=== PATIENT | female | born 1955 | race Caucasian/White ===

== ENCOUNTER → 2019-10-05 08:55 | Outpatient (BNVA) | payer MEDICARE, MEDICAID, SELFPAY | PROVIDERS: Family Provider Family Medicine; PCP Family Medicine; Visit Provider Internal Medicine Rheumatology | DX: M05.79 Rheumatoid arthritis with rheumatoid factor of multiple sites without organ or systems involvement (principal); Z79.899 Other long term (current) drug therapy; M79.7 Fibromyalgia; F17.210 Nicotine dependence, cigarettes, uncomplicated | CPT/HCPCS: 99213 ==

== ENCOUNTER → 2019-10-11 11:31 | Outpatient (BNVA) | payer MEDICARE, MEDICAID, SELFPAY | PROVIDERS: Family Provider Family Medicine; PCP Family Medicine; Visit Provider Podiatrist Foot & Ankle Surgery | DX: M79.671 Pain in right foot (principal); M77.32 Calcaneal spur, left foot | CPT/HCPCS: 73620; 73630 ==

== ENCOUNTER 2019-10-20 15:38 | Outpatient (REF) | payer MEDICARE, MEDICAID, SELFPAY ==
[2019-10-20 16:16] LABS: Add Urine Microscopic? YES; Bilirubin Urine Neg (NEGATIVE); Blood Urine Trace (Negative); Glucose Urine UA Norm (Normal); Ketones Urine Negative (Negative); Leukocyte Esterase Urine Negative (Negative); Nitrate Urine Negative (Negative); Protein Urine Neg (Negative); Specific Gravity, Urine 1.015 (1.005-1.030); Urine Appearance Clear (CLEAR); Urine Color Yellow (Yellow); Urobilinogen Urine Norm (Negative); pH Urine 5 (5-7)
[2019-10-20 16:20] LABS: Hyaline Casts Urine 0-4; WBC Urine 0-4 /hpf (0-5)
== END 2019-10-20 15:39 | disposition home or self-care (01) ==
LOC: LAB 15:38
PROVIDERS: Family Provider Family Medicine; PCP Family Medicine; Visit Provider Specialist
DX: Z01.89 Encounter for other specified special examinations (principal)
CPT/HCPCS: 81001; 87641

== ENCOUNTER 2019-11-08 16:11 | Outpatient (CLI) | payer MEDICARE, MEDICAID, SELFPAY | END 2019-11-08 16:12 | disposition home or self-care (01) | LOC: SPT 16:12 | PROVIDERS: Family Provider Family Medicine; PCP Family Medicine; Visit Provider Podiatrist Foot & Ankle Surgery | DX: M76.72 Peroneal tendinitis, left leg (principal) | CPT/HCPCS: L4361 ==

== ENCOUNTER 2019-12-06 14:35 | Outpatient (CLI) | payer MEDICARE, MEDICAID, SELFPAY | END 2019-12-06 14:36 | disposition home or self-care (01) | LOC: SPT 14:35 | PROVIDERS: Family Provider Family Medicine; PCP Family Medicine; Visit Provider Podiatrist Foot & Ankle Surgery | DX: M76.72 Peroneal tendinitis, left leg (principal) | CPT/HCPCS: L1902 ==

== ENCOUNTER → 2020-02-02 14:04 | Outpatient (BNVA) | payer MEDICARE, MEDICAID, SELFPAY | PROVIDERS: Family Provider Family Medicine; PCP Family Medicine; Visit Provider Internal Medicine Rheumatology | DX: M05.79 Rheumatoid arthritis with rheumatoid factor of multiple sites without organ or systems involvement (principal); F17.210 Nicotine dependence, cigarettes, uncomplicated; Z79.899 Other long term (current) drug therapy; M79.7 Fibromyalgia; M48.02 Spinal stenosis, cervical region; M17.0 Bilateral primary osteoarthritis of knee | CPT/HCPCS: 99214 ==

== ENCOUNTER → 2020-02-07 10:16 | Outpatient (BNVA) | payer MEDICARE, MEDICAID, SELFPAY | PROVIDERS: Family Provider Family Medicine; PCP Family Medicine; Visit Provider Specialist | DX: M17.11 Unilateral primary osteoarthritis, right knee (principal) | CPT/HCPCS: 73560; 73565; 81000; 87081 ==

== ENCOUNTER 2020-02-09 08:55 | Outpatient (CLI) | payer MEDICARE, MEDICAID, SELFPAY ==
--- NOTE | 2020-02-09 09:19 | XR_ITS ---
WS: [id number] RIGHT FOOT: 3 VIEW(S) TECHNIQUE: AP, oblique and lateral. HISTORY: inflammatory arthritis COMPARISON: 12/02/2018 No acute fracture or dislocation. Normal tarsal/metatarsal alignment. No erosions at the metatarsal heads. Subchondral erosion distal phalanx first toe is symmetric to the LEFT foot. This is been present on prior studies. XR/XR foot RT min 3V* [id number] IMPRESSION: Small erosion distal phalanx first toe may be from gout or subchondral cyst.
--- NOTE | 2020-02-09 09:19 | MR_ITS ---
WS: [id number] MRI LEFT FOOT, non- CONTRAST. COMPARISON: 02/09/2020 radiographs Multiplanar, multisequence imaging is performed without contrast. History: Lateral ankle pain for 6 months. No injury. Marker is placed over the lateral ankle at the site of pain. Marker is adjacent to the posterior dist al fibula. The common peroneus tendon at this level is normal. Inferior to the fibular tip the peroneus tendon becomes indistinct with subtle haziness and mild thic kening. This is a short segment area of tendon wall thickening and increased signal. The peroneus ree vis tendon is smaller caliber than expected but there is no full-thickness tear. The peroneus longus tendon is normal caliber and course. There is not a lot of fluid within the tendon sheath. There is no effusion at the ankle joint. The distal Achilles tendon is normal. There is a small calca bárbara spur and a small amount of fluid at the aponeurosis attachment to the calcaneal spur. No marrow edema. No marrow edema within the peroneal tubercle. MR/MR foot LT wo con* [id number] IMPRESSION: 1. Small caliber and mild increased signal in the peroneus brevis tendon dista l to the fibular tip. Probably from a partial chronic tear with healing. Tendin opathy with possible subtle changes of stenosing tenosynovitis should be consid ered. No full-thickness tear. 2. No marrow edema in the peroneal tubercle. 3. Mild plantar fasciitis.
--- NOTE | 2020-02-09 09:19 | XR_ITS ---
WS: [id number] LEFT HAND: 3 VIEW(S) TECHNIQUE: PA, oblique and lateral. HISTORY: inflammatory arthritis COMPARISON: None available. No acute fracture or dislocation. Mild interphalangeal joint space narrowing. No periarticular osteopenia. No erosions. XR/XR hand LT min 3V* [id number] IMPRESSION: Minimal interphalangeal joint space narrowing from arthritis.
--- NOTE | 2020-02-09 09:19 | XR_ITS ---
WS: [id number] LEFT FOOT: 3 VIEW(S) TECHNIQUE: AP, oblique and lateral. HISTORY: inflammatory arthritis COMPARISON: 12/02/2018 No acute fracture or dislocation. Normal tarsal/metatarsal alignment. No erosions at the metatarsal heads. There is an erosion along th e medial first distal phalanx measuring 4 mm. This has been present on prior studies. May be a subcho ndral cyst from arthritis. No periarticular osteopenia. Small calcaneal spur. XR/XR foot LT min 3V* [id number] IMPRESSION: 1. No erosions at the metatarsal heads. 2. Small erosion involving the distal phalanx of the first toe may be from gou t or osteoarthritis. 3. Small calcaneal spur.
--- NOTE | 2020-02-09 09:19 | XR_ITS ---
WS: [id number] RIGHT HAND: 3 VIEW(S) TECHNIQUE: PA, oblique and lateral. HISTORY: inflammatory arthritis COMPARISON: None available. No acute fracture or dislocation. No erosions at the metacarpal heads. Mild interphalangeal joint space narrowing. No osteopenia. XR/XR hand RT min 3V* [id number] IMPRESSION: Mild osteoarthritis.
== END 2020-02-09 08:56 | disposition home or self-care (01) ==
LOC: RADWPI 09:01
PROVIDERS: Family Provider Family Medicine; PCP Family Medicine; Visit Provider Podiatrist Foot & Ankle Surgery
DX: M19.90 Unspecified osteoarthritis, unspecified site (principal); M19.041 Primary osteoarthritis, right hand; M19.042 Primary osteoarthritis, left hand; M77.32 Calcaneal spur, left foot; M85.872 Other specified disorders of bone density and structure, left ankle and foot; M85.871 Other specified disorders of bone density and structure, right ankle and foot; M72.2 Plantar fascial fibromatosis
CPT/HCPCS: 73130; 73630; 73718

== ENCOUNTER 2020-02-15 09:27 | Observation (INO) | payer MEDICARE, MEDICAID, SELFPAY ==
[2020-02-11 11:15] VITALS: BMI 27.8
--- NOTE | 2020-02-11 11:35 | ECG_ITS ---
Measurements Intervals Rough And Ready Rate: 51 P: 47 CA: 145 QRS: -16 QRSD: 114 T: -33 QT: 453 QTc: 419 SINUS BRADYCARDIA SEPTAL MYOCARDIAL INFARCTION [40+ ms Q WAVE IN V1/V2], PROBABLY OLD MODERATE T-WAVE ABNORMALITY, CONSIDER LATERAL ISCHEMIA Compared to ECG 04/03/2019 19:25:30 Myocardial infarct finding now present Sinus rhythm no longer present Intraventricular conduction delay no longer present T-wave abnormality still present Possible ischemia still present Electronically Signed On 02-11-2020 18:28:46 CDT by Lenore Brink M.D. [email or web address]
[2020-02-11 11:59] LABS: Basophils # 0.1 10^3/uL (0.0-0.1); Basophils % 0.8 %; Eosinophils # 0.1 10^3/uL (0.0-0.8); Eosinophils % 0.9 %; Hematocrit 36.1 % (37.0-47.0); Lymphocytes # 1.2 10^3/uL (0.8-4.8); Lymphocytes % 11.8 %; Mean Corpuscular HGB Conc 30.5 g/dL (30.0-36.0); Mean Corpuscular Hemoglobin 27.2 pg (28.0-34.0); Mean Corpuscular Volume 89.1 fL (81-99); Mean Platelet Volume 12.6 fL (7.4-10.4); Monocytes # 0.5 10^3/uL (0.2-0.9); Monocytes % 4.7 %; Neutrophils # 8.2 10^3/uL (1.8-7.7); Neutrophils % 81.4 %; Nucleated Red Blood Cells % 0 %; Platelet Count 208 10^3/cmm (130-400); Red Blood Count 4.05 10^6/uL (4.1-5.3); Red Cell Distribution Width 17.4 % (12.1-15.1)
--- NOTE | 2020-02-11 12:00 | P.ANESASSM_ITS ---
Pre-Anesthetic Assessment Pre-Anesthetic Assessment: Height/Weight: Height 1.57 m Weight 68.946 kg Preop Diagnosis: Osteoarthritis right knee Proposed Procedure: Operation Date: 02/15/20 07:00 Proposed Procedures p Total Knee Arthroplasty 79771 M17.11(Right) - Kiki Trinidad MD Familial anesthetic complications: None Social: Social History: Tobacco and No alcohol Exam: Pre-Anes Outpt Exam: alert, oriented x 3, clear to auscultation bilaterally and regular rate & rhythm Airway: Cervical ROM: Other (limited extension - disc herniations) MP: 3 Additional comments: edentuous Pulmonary: Pulmonary: COPD CV/HEM: CV/HEM: CAD, HTN and [place] (2-3 (most recent one 2015)) GI: GI: GERD Metabolic: Metabolic: Hyperlipidemia and Thyroid Musc/skel: Musc/skel: RA (spinal Cord is being pinched -) Neuropsych: Neuropsych: CVA (no residual symptoms (2014)) and Neuropathy Anesthetic Plan: ASA status: 3 Anesthesia: General and Regional (specify below) Risk of > 500 ml blood loss (7ml/kg in children): No PFSH Anesthesia PFSH: Medical History CAD (coronary artery disease) COPD (chronic obstructive pulmonary disease) Degenerative cervical spinal stenosis Degenerative disc disease, lumbar Dyslipidemia Fibromyalgia Immunosuppression Medication monitoring encounter NJ, acute, non ST segment elevation Mitral regurgitation Osteoarthritis of left knee Seropositive rheumatoid arthritis of multiple joints Small fiber neuropathy Tobacco abuse Surgical History H/O adenoidectomy H/O bilateral cataract extraction H/O hemorrhoidectomy H/O: hysterectomy History of appendectomy Hx of section two times Hx of cholecystectomy Family History Other CAD (coronary artery disease) Cancer Chronic kidney disease (CKD) Hypertension Stroke Denies family history of Rheumatoid arthritis Diabetes Systemic lupus erythematosus (SLE) in adult Lung disease Social History Smoking and tobacco status: current every day smoker cigarettes Alcohol intake: never Marital status: Single Current occupational status: disabled History of recent travel: No (10/05/19) Data Anesthesia CBC & Chem 7: 02/11/20 11:25 Other Labs: Laboratory Results - last 48 hr 02/11/20 11:25 WBC 10.0 RBC 4.05 L Hgb 11.0 L Hct 36.1 L MCV 89.1 MCH 27.2 L MCHC 30.5 RDW 17.4 H Plt Count 208 MPV 12.6 H Neut % (Auto) 81.4 Lymph % (Auto) 11.8 [place] % (Auto) 4.7 Eos % (Auto) 0.9 Baso % (Auto) 0.8 Neut # (Auto) 8.2 H Lymph # (Auto) 1.2 [place] # (Auto) 0.5 Eos # (Auto) 0.1 Baso # (Auto) 0.1 Nucleated RBC % (auto) 0 Nucleated RBCs # 0.0 Cardiac Studies: No Data to Display
[2020-02-11 12:12] LABS: Alanine Aminotransferase 14 U/L (0-33); Albumin Level 4.3 g/dL (3.5-5.2); Alkaline Phosphatase 100 IU/L (35-105); Anion Gap 16.2 (5-19); Aspartate Amino Transferase 26 U/L (0-32); Blood Urea Nitrogen 12 mg/dL (8-23); Calcium 9.9 mg/dL (8.5-10.5); Carbon Dioxide 27 mmol/L (22-29); Chloride 104 mmol/L (98-107); Globulin 3.3 g/dL (1.3-4.6); Glomerular Filtration Rate 56.2 mL/min (90-130); Glucose 101 mg/dL (65-115); Osmolality Calculated 292 mOsm/kg (285-295); Potassium 4.2 mmol/L (3.5-5.1); Sodium 143 mmol/L (136-145); Total Bilirubin 0.3 mg/dL (0.15-1.2); Total Protein 7.6 g/dL (6.6-8.7)
[2020-02-15] VITALS (21 sets, daily range): BP systolic 101–163; BP diastolic 60–108; PULSE 53–97; RESP 13–26; TEMP 35.7–37; O2SAT 92–100
[2020-02-15] MEDS: CELEcoxib 200 mg Capsule 400 MG PO (05:57)
[2020-02-15] MEDS: sodium chloride 0.9% 1,000 ML 30 ML IV (05:58)
[2020-02-15] MEDS: midazolam 1 mg/mL INJ 2 mL 2 MG IVP (06:30)
[2020-02-15] MEDS: fentaNYL 50 mcg/mL INJ 2mL 100 MCG IVP (06:41)
--- NOTE | 2020-02-15 06:55 | P.HPUD_ITS ---
Surgery/Procedure H&P Update DATE OF PROCEDURE: February 15, 2020 DATE H&P PERFORMED: 02/07/20 H&P UPDATE INFORMATION: I have reviewed H&P completed within last 30 days, I have examined patient prior to procedure and H&P is in [facility] [place] [facility] on date indicated PREOP DIAGNOSIS: Osteoarthritis right knee PLANNED PROCEDURE: Operation Date: 02/15/20 07:00 Proposed Procedures p Total Knee Arthroplasty 71665 M17.11(Right) - Kiki Trinidad MD
--- NOTE | 2020-02-15 07:31 | ANES.PROC ---
Anesthesia Procedures Procedure/Date: 02/15/20 Nerve Block ^: Nerve Block 1: Main Anesthesia: general anesthesia Time Out Performed: Yes Consent: requested by attending/covering physician, from patient, risks and benefits reviewed and patient agrees to proceed Nerve block location: adductor canal (right) Anesthesia monitors applied: pulse oximetry, EKG, BP cuff and oxygen Nerve block position: supine Anesthetic Used: ropivicaine 0.5% Amount of anesthesia used (mL): 30 Ultrasound used to: recognize landmarks Nerve Stimulator Used?: No Interscalene/Femoral BLK: 4 stimuplex 21 g needle used for position and inplane approach, visualize local anesthetic spread and no vascular puncture identified Injection: neg aspiration of heme Patient Tolerated Procedure: well and no complications Complications: none
[2020-02-15] MEDS: ceFAZolin 1,000 mg SDV 1000 MG IRRIGATION ×2 (07:44)
[2020-02-15] MEDS: vancomycin 1,000 MG SDV 1000 MG XX (07:45)
--- NOTE | 2020-02-15 09:21 | XR_ITS ---
WS: [id number] RIGHT KNEE 2 VIEWS AP and cross table lateral imaging is submitted. HISTORY: Status post total knee arthroplasty. COMPARISON: 02/07/2020 Possible nondisplaced fracture through the proximal tibia. There is a lucency extending from the medi al tibial metaphysis inferiorly. On the lateral projection there is a slight interruption of the tom ex anteriorly over the tibial tubercle. Total knee replacement prosthetic devices are in good position and alignment. Normal position of the patella. Posterior patella resurfacing changes. Numerous postsurgical sutures are noted over the ant erior knee and there are normal postoperative changes in the soft tissues consistent with air, blood and edema. No complications are evident. XR/XR knee RT 1-2V [id number] IMPRESSION: 1. RIGHT knee arthroplasty. Components are in good position alignment. 2. Suspicious but indeterminate for fracture involving the proximal tibia.
--- NOTE | 2020-02-15 09:21 | SUR.PHASEI ---
0915 PATIENT TO PACU AT THIS TIME. RR EVEN AND UNLABORED. SPO2 100% ON SIMPLE MASK AT 8L. DRESSING TO RIGHT KNEE, CDI, WITH RIGHT PEDAL PULSE MARKED.
[2020-02-15] MEDS: fentaNYL 50 mcg/mL INJ 2mL IVP ×2 (09:31→09:48)
--- NOTE | 2020-02-15 09:41 | PM.OP ---
Operative Report Date of procedure: February 15, 2020 Pre-op Diagnosis: Osteoarthritis right knee Post-op diagnosis: same Procedure Done: Right total knee arthroplasty utilizing the following components: The [place] total knee system with a size 3 triathlon right posterior stabilized femur, a size 3 triathlon Tritanium tibial component with a triathlon X3 size 3 x 9 mm posterior stabilized tibial bearing insert. Plus an asymmetric patella size 29 mm x 9 mm Specimens removed/disposition: Bone, disposed of Pathology: none sent Surgeon: Kiki Trinidad Delicatessen Clerk: [facility] OR civilian technician Anesthesia: General (Intubated, ASA 3) Estimated blood loss (mL): 25 Tourniquet time (min): 80 Tourniquet time: at 250 mmHg IV fluids (mL): 1,100 Urine output (mL): 600 Complications: None Findings: Osteoarthritis right knee primarily medial compartment Condition: stable Disposition: PACU (Then to floor for postoperative rehabilitation and pain management) Brief History: This 64-year-old woman presented complaints of right knee pain secondary to degenerative osteoarthritis. She was not responsive to conservative measures. She had significant impact in her activities of daily living. She wished to proceed with total knee arthroplasty. Risks and complications were discussed with her and consents were signed preoperatively. Procedure: The patient was brought to the operating theater, and after undergoing adequate general intubated anesthesia with supplemental regional block, the right lower extremity was prepped with Dura-Prep and draped in usual fashion following placement of a tourniquet high on the leg. The leg was then draped free. Following prepping and draping, the leg was exsanguinated, and the tourniquet was elevated to 250 mmHg for a total tourniquet time of 80 minutes. Prior to elevation of the tourniquet, but following exposure of the site of surgery, a surgical pause was performed. At the time of the surgical pause, we confirmed the site and side of surgery. Additionally, we confirmed the appropriate and timely administration of preoperative antibiotics, Ancef 2 g and transexemic acid 1 g. The availability of equipment was confirmed, and the patient's identity was verbalized as well. Following the surgical pause, an incision was made centering over the patella continuing proximally and distally as necessary to allow access to the knee joint. Dissection continued through skin and soft tissues using a scalpel. Hemostasis was obtained using electrocautery. The skin incision was followed by a median parapatellar arthrotomy. The leg was extended and the patella was everted. Following this, the leg was returned to flexed position. The distal femur was exposed and a drill hole was made in this for placement of the distal femoral jig. The distal femoral jig was set at 5? of valgus. The distal femoral cutting block was then placed in appropriate position, and an prabhjot wing was used to confirm an appropriate amount of distal femur would be resected. The distal femoral resection was accomplished with 8 mm of bone being resected distally. After the distal femoral resection had been accomplished, the femur was measured and it measured a size 3. Medial lateral dimension also measured a size 3. A size 3 femoral cutting block was placed in position, and we were then able to accomplish the anterior, posterior and chamfer cuts. This jig was then removed and the notch guide was placed in position. With the notch guide in appropriate position, the notch was excised including resection of the anterior and posterior cruciate ligaments. This notch was to allow for the posterior stabilized femoral component. At this point, the femur was prepared and attention was directed to the proximal tibia. The posterior knee retractor was placed along with medial and lateral retractors. Further resection of the menisci was accomplished as we had better visualization. A complete meniscectomy was performed both medially and laterally with care being taken to protect the popliteus. Retractors were then placed so that the proximal tibia was well visualized. A drill hole was then made in the tibia for placement of the intramedullary guide. This guide was placed so that approximately 2 mm of bone would be resected from the deficient medial tibial plateau. The intramedullary guide was utilized supplemented with an extramedullary guide to assure appropriate alignment for the proximal tibial resection. The proximal tibial jig was then evaluated, pinned in position, and the proximal tibial resection was accomplished without difficulty. The jig was removed and the proximal tibia was measured. It measured a size 3. We then performed a trial reduction with a 9 mm insert into the size 3 tray. The femoral component was placed in position for the trial reduction, and the knee was placed through range of motion. There was excellent stability with excellent varus-valgus alignment with appropriate patellar tracking. This was felt to be the appropriate size insert. There was full extension and flexion without lift off and the rotation of the tibia was marked. Alignment was checked from the hip to the ankle, and this was noted to be appropriate as well. Attention was then directed to the patella. The patella was measured with a caliper. We resected sufficient patella to leave approximately 15 mm of patella remaining. Measurements of the patella then indicated that a size asymmetric 29 mm x 9 mm was the appropriate patellar size. We then placed the jig to drill for the 3 pegs of the press-fit patella, and these drill holes were made without incident. A trial patella was then placed and the knee was placed through range of motion. The patella was noted to track nicely without evidence of subluxation. The femur was prepared for a press-fit femur by drilling 2 holes for the femoral pegs. All trial components were subsequently removed. The tibial tray was then pinned into position, and we broached the tibia for the stem of the tibial component. Subsequently, 4 drill holes were made for placement of the press-fit tibia. This was accomplished without difficulty. Care was taken to assure appropriate rotation of the tibia as well as appropriate position on the proximal tibia. The tibial tray was completely seated on the proximal tibia. Following broaching, the tibial guide was removed, and all surfaces were copiously irrigated. The surfaces were then dried and a bone plug was placed into the distal femur. Exparel was also injected at this point. The Tritanium tibia was impacted into position. The beaded femur was then impacted into position in a cementless fashion. The tibial insert was placed. The patella was pressed into position with a patellar clamp. The knee was irrigated with 20 mL of Betadine and 500 mL of normal saline, and this was allowed to remain in the knee for 3-4 minutes. The knee was then copiously irrigated and suctioned dry. Attention was then directed to closure. Closure was accomplished with 0 Vicryl in the fascial tissues, 2-0 Monocryl was used in the subcutaneous tissues, and the skin was closed with skin emily followed by Exofin. A sterile dressing was then placed consisting of Telfa, 4 x 4's, ABDs, sterile soft roll, and an Mario wrap. The patient was returned the Recovery Room in a satisfactory condition. X-rays were obtained there. The patient will be discharged to the floor for postoperative rehabilitation and pain management. She'll be under observation status with plans to discharge home with home health.
--- NOTE | 2020-02-15 10:18 | SUR.PHASEI ---
1001 PATIENT TO MED SURG AT THIS TIME. PAIN 4/10, FIRST ICE IN PLACE TO RIGHT KNEE WITH DRESSING CDI. ANESTHESIA AWARE OF LAST DOSE OF FENTANYL. THIS NURSE REMAINED WITH PATIENT UNTIL 1003.
[2020-02-15] MEDS: HYDROcodone-acetaminophen 10-325 mg Tablet 1 TAB PO ×3 (11:17→22:08)
[2020-02-15] MEDS: CELEcoxib 200 mg Capsule PO ×2 (11:19→21:16)
[2020-02-15] MEDS: levothyroxine 25 mcg Tablet PO (11:19)
[2020-02-15] MEDS: pantoprazole DR 40 mg Tablet PO (11:19)
[2020-02-15] MEDS: sodium chloride 0.9% 1,000 ML 100 ML IV ×2 (11:24→21:15)
[2020-02-15] MEDS: chlorhexidine gluconate 0.12% Btl 473 mL 30 ML MUCOUS MEM ×3 (13:40→21:16)
[2020-02-15] MEDS: tizanidine 4 mg Tablet PO (13:58)
[2020-02-15] MEDS: pregabalin 100 mg Capsule PO ×2 (15:47→21:16)
[2020-02-15] MEDS: acetaminophen 500 mg Tablet PO (16:25)
[2020-02-15] MEDS: mupirocin oint 22 gm 1 APPLIC NASAL (17:08)
[2020-02-15] MEDS: sennosides-docusate Tablet 2 TAB PO (17:09)
[2020-02-15] MEDS: metoprolol tartrate 25 mg Tablet PO (17:09)
[2020-02-15] MEDS: iron polysaccharide complex 150 mg Capsule PO (17:09)
[2020-02-15] MEDS: calcium carbonate 500 mg Chew Tablet 1000 MG PO (17:09)
[2020-02-15] MEDS: triamcinolone 0.1% cream 15 gm 1 APPLIC TOPICAL (17:15)
[2020-02-15] MEDS: mirtazapine 30 mg Tablet PO (21:16)
[2020-02-15] MEDS: atorvastatin 40 mg Tablet 20 MG PO (21:16)
[2020-02-16 02:44] VITALS: RESP 18; O2SAT 92
[2020-02-16] MEDS: oxyCODONE-APAP 5-325 mg Tablet 1 TAB PO (02:44)
[2020-02-16 03:48] VITALS: BP 127/77; PULSE 61; RESP 18; TEMP 36.9; O2SAT 99
[2020-02-16] MEDS: tizanidine 4 mg Tablet PO (05:26)
[2020-02-16 05:58] LABS: Basophils % 0.1 %; Eosinophils % 0.1 %; Hematocrit 32.3 % (37.0-47.0); Hemoglobin 9.7 g/dL (11.5-15.3); Lymphocytes # 1.2 10^3/uL (0.8-4.8); Lymphocytes % 7.9 %; Mean Corpuscular Hemoglobin 27.6 pg (28.0-34.0); Mean Corpuscular Volume 91.8 fL (81-99); Monocytes % 6.9 %; Neutrophils # 12.8 10^3/uL (1.8-7.7); Neutrophils % 84.6 %; Nucleated Red Blood Cells % 0 %; Platelet Count 143 10^3/cmm (130-400); Red Blood Count 3.52 10^6/uL (4.1-5.3); Red Cell Distribution Width 17.6 % (12.1-15.1); White Blood Count 15.2 10^3/uL (4.0-10.0)
[2020-02-16 06:13] LABS: Anion Gap 15.8 (5-19); Blood Urea Nitrogen 10 mg/dL (8-23); Calcium 8.7 mg/dL (8.5-10.5); Carbon Dioxide 22 mmol/L (22-29); Chloride 106 mmol/L (98-107); Glomerular Filtration Rate 63.4 mL/min (90-130); Glucose 96 mg/dL (65-115); Osmolality Calculated 286 mOsm/kg (285-295); Potassium 3.8 mmol/L (3.5-5.1); Sodium 140 mmol/L (136-145)
[2020-02-16] MEDS: HYDROcodone-acetaminophen 10-325 mg Tablet 1 TAB PO (06:36)
[2020-02-16] MEDS: sodium chloride 0.9% 1,000 ML 100 ML IV (06:39)
[2020-02-16 07:21] VITALS: BP 103/61; PULSE 56; RESP 16; TEMP 37; O2SAT 98
[2020-02-16] MEDS: cholecalciferol (vitamin D3) 1,000 unit Tablet 1000 UNIT PO (09:36)
[2020-02-16] MEDS: predniSONE 5 mg Tablet 2.5 MG PO (09:37)
[2020-02-16] MEDS: aspirin 325 mg EC Tablet PO (09:37)
[2020-02-16] MEDS: calcium carbonate 500 mg Chew Tablet 1000 MG PO (09:37)
[2020-02-16] MEDS: metoprolol tartrate 25 mg Tablet PO (09:38)
[2020-02-16] MEDS: pantoprazole DR 40 mg Tablet PO (09:38)
[2020-02-16] MEDS: multivitamin therapeutic Tablet 1 TAB PO (09:38)
[2020-02-16] MEDS: sennosides-docusate Tablet 2 TAB PO (09:38)
[2020-02-16] MEDS: mupirocin oint 22 gm 1 APPLIC NASAL (09:39)
[2020-02-16] MEDS: iron polysaccharide complex 150 mg Capsule PO (09:39)
[2020-02-16] MEDS: pregabalin 100 mg Capsule PO ×2 (09:39→15:41)
[2020-02-16] MEDS: triamcinolone 0.1% cream 15 gm 1 APPLIC TOPICAL (09:39)
[2020-02-16] MEDS: levothyroxine 25 mcg Tablet PO (09:40)
[2020-02-16] MEDS: chlorhexidine gluconate 0.12% Btl 473 mL 30 ML MUCOUS MEM (09:41)
[2020-02-16] MEDS: CELEcoxib 200 mg Capsule PO (09:49)
--- NOTE | 2020-02-16 10:32 | PC.CHAP ---
Pastoral Care Encounter/Spiritual Assessment Type of Contact [] Declined tree sapper visit [] Patient/Family/Request visit [] Outpatient visit [] Follow-up visit [] Physician referral [] Code/Alert [x] Routine visit [] Staff referral [] Actively dying [] Patient sleeping [] Family support [] [] Out of room [] Palliative care [] [] Receiving care in room [] Pre-surgical visit [] Trauma [] Long length of stay [] ICU visit [] Other: Relational/Emotional Strength [] Patient feels connected with others/family/visitors/staff [] Distress [] Loneliness/isolation [] Abandonment Spirituality of Patient [] Person of Blanca [] Attends Evangelical of their Blanca [] Believes in Prayer [] Reads Bible or Hoahaoism materials [] There are Spiritual issues to be addressed Survey Research Professor Interventions [x] Prayer [] Active listening [] Non-anxious presence [] Spiritual/emotional support [] Crisis/trauma care [] Spiritual counseling [] Bereavement support [] Provided bereavement packet [] Provided Bible/devotional materials [] Provided toy/stuffed animal, coloring book to patient or family member [] Provided Communion [] Anointing/[place] [] Salvation [x] Completed spiritual assessment [] Other: Impact on Illness or Injury [] Angry [] Fearful [] Anxious [] Often cries [] Exhaustion [] Unable to work [] Unable to attend cheondoism [] Unable to walk/stand [] Unable to read [] Unable to drive [] Unable to eat/drink [] Unable to sleep [] Unable to be with family [] Patient intubated [] Other: Summary Patient working through pain. Patient lives alone but realizes that exercising is the only way to get better. Time spent with patient 15 min
[2020-02-16 11:03] VITALS: BP 116/69; PULSE 52; RESP 18; TEMP 36.5; O2SAT 99
--- NOTE | 2020-02-16 13:58 | P.DS_ITS ---
Discharge Providers Date of Admission: 02/15/20 09:27 Date of Discharge: February 16, 2020 Attending Provider at Admission: Kiki Trinidad MD Attending Provider at Discharge: Kiki Trinidad MD Primary Care Provider: Mora Adamson MD Diagnoses at Discharge Discharge Diagnosis (1) Primary osteoarthritis of right knee: Status: Resolved (2) History of total right knee replacement: Status: Acute Reason for Visit Reason for Visit: Reason For Visit: Knee Osteoarthritis Hospital Course Hospital Course: Patient was admitted to the hospital under observation status following same-day surgery for right total knee arthroplasty. Patient had an uneventful right total knee arthroplasty. On the first postoperative day, she was doing well. Her pain was controlled with oral pain medications. Once her dressing was removed, her wound was benign. There is no drainage. There is no significant ecchymosis. There is no evidence of DVT or other complication. The patient's x-rays were reviewed prior to discharge. There was some concern from the radiologist that there may be a small indeterminate fracture involving the medial tibia. I reviewed the x-ray, and I am not concerned that the patient would need to change weightbearing status at this time. The patient wished to be discharged to home with home physical therapy. This was arranged for her. There were no complications through her hospital stay. Discharge Summary: Patient came to the hospital for same-day surgery for the following procedure: Right total knee arthroplasty utilizing the following components: The Karyna total knee system with a size 3 triathlon right posterior stabilized femur, a size 3 triathlon Tritanium tibial component with a triathlon X3 size 3 x 9 mm posterior stabilized tibial bearing insert. Plus an asymmetric patella size 29 mm x 9 mm On the first postoperative day, the patient's pain was well controlled and managed. She was ready for discharge to home. Physical Exam Const: COMMON NORMALS: no acute distress, average body habitus, patient oriented x3 and alert GENERAL APPEARANCE: cooperative and comfortable ORIENTATION/CONSCIOUSNESS: Yes awake HENMT: COMMON NORMALS: normocephalic and atraumatic HEAD & SCALP: normocephalic and atraumatic Eye: GENERAL EYE: appearance normal, both eyes and all related structures Chest: COMMONS NORMALS: normal inspection of the chest Resp: COMMON NORMALS: normal respiratory effort EFFORT & INSPECTION: Yes able to speak in complete sentences and Yes symmetric chest movement Extremity: GENERAL: Yes normal exam except as noted RIGHT LOWER EXTREMITY: Yes knee joint Right knee: Yes inspection (Dressing is removed. There is no evidence of DVT. There is no drainage or evidence of infection.), Yes palpation (There is minimal to no tenderness with palpation) and Yes neurovascular exam (Intact distal to the surgical procedure) Neuro: COMMON NORMALS: patient oriented x3 SENSORIUM/ORIENTATION: Yes alert Psych: COMMON NORMALS: mental status grossly normal APPEARANCE: Yes grossly normal ATTITUDE: Yes calm and Yes engaged ATTENTION/CONCENTRATION: Yes attention grossly intact Skin: COMMON NORMALS: no rashes or lesions noted GENERAL SKIN EXAM: no rashes or lesions noted Urinary Catheter Management^: Latex Free: Cath Placed During This Visit: yes, but has since been removed by the nurse Urinary Catheter Date of Insertion: 02/15/20 Urinary Catheter Time of Insertion: 07:20 Date Urinary Catheter Removed: 02/16/20 Time Urinary Catheter Discontinued: 06:30 Discharge Data Data Completed and Pending: Completed Studies During Hospitalization Category Date Time Status XR knee RT 1-2V 7 3560 Routine Exams 02/15/20 09:21 Completed Pending at discharge Category Date Time Status Complete Blood Co unt w/Auto Lab 02/17/20 04:00 Uncollected Complete Blood Co unt w/Auto Lab 02/18/20 04:00 Uncollected Labs from last 24 hours 02/16/20 02/16/20 05:50 05:50 WBC 15.2 H RBC 3.52 L Hgb 9.7 L Hct 32.3 L MCV 91.8 MCH 27.6 L MCHC 30.0 RDW 17.6 H Plt Count 143 MPV 13.0 H Neut % (Auto) 84.6 Lymph % (Auto) 7.9 [place] % (Auto) 6.9 Eos % (Auto) 0.1 Baso % (Auto) 0.1 Neut # (Auto) 12.8 H Lymph # (Auto) 1.2 [place] # (Auto) 1.0 H Eos # (Auto) 0.0 Baso # (Auto) 0.0 Nucleated RBC % (a uto) 0 Nucleated RBCs # 0.0 Sodium 140 Potassium 3.8 Chloride 106 Carbon Dioxide 22 Anion Gap 15.8 BUN 10 Creatinine 0.9 GFR Calculation 63.4 L Glucose 96 Calculated Osmolal ity 286 Calcium 8.7 Procedures Performed: Right total knee arthroplasty utilizing the following components: The Karyna total knee system with a size 3 triathlon right posterior stabilized femur, a size 3 triathlon Tritanium tibial component with a triathlon X3 size 3 x 9 mm posterior stabilized tibial bearing insert. Plus an asymmetric patella size 29 mm x 9 mm Vitals: Last Vital Signs Temp 97.7 F 02/16/20 11:03 Pulse 52 L 02/16/20 11:03 Resp 18 02/16/20 11:03 BP 116/69 02/16/20 11:03 Pulse Ox 99 02/16/20 11:03 Discharge Plan Discharge Patient Disposition: Home Health Service Condition: Stable Prescriptions: New celecoxib 200 mg Capsule 200 mg PO Q12H Qty: 60 RF: 0 aspirin 325 mg Tablet,Delayed Release (Dr/Ec) 325 mg PO DAILY 30 Days RF: 0 Continued simvastatin 20 mg tablet 20 mg PO .daily at bedtime Qty: 90 RF: 3 nitroglycerin [Nitrostat] 0.4 mg tablet, sublingual 0.4 mg SUBLINGUAL Q5M PRN (Reason: chest pain) Qty: 25 RF: 4 metoprolol tartrate 25 mg tablet 25 mg PO BID RF: 0 furosemide 20 mg tablet 20 mg PO QAM RF: 0 potassium chloride 10 mEq tablet extended release 10 meq PO DAILY RF: 0 pregabalin [Lyrica] 100 mg capsule 100 mg PO TID RF: 0 sodium chloride 0.9 % solution for nebulization 1 ml INHALATION Q4H PRN (Reason: sob) RF: 0 mirtazapine 30 mg tablet 30 mg PO .daily at bedtime RF: 0 albuterol sulfate [ProAir HFA] 90 mcg/actuation HFA aerosol inhaler 2 puff INHALATION Q6H PRN (Reason: sob) RF: 0 tizanidine 4 mg capsule 4 mg PO TID PRN (Reason: Pain) RF: 0 movantix 25 mg tablet 1 tab PO DAILY RF: 0 alprazolam 0.25 mg tablet 0.25 mg PO .daily at bedtime PRN (Reason: Sleep) RF: 0 levothyroxine 25 mcg capsule 25 mcg PO .COMPLEX RF: 0 Restasis MultiDose 0.05 % drops 1 drop ophthalmic (eye) Q12H RF: 0 mupirocin 2 % ointment 1 applic TOPICAL BID RF: 0 triamcinolone acetonide 0.1 % cream 1 applic TOPICAL BID RF: 0 Movantik 25 mg tablet 25 mg PO QAM RF: 0 folic acid 1 mg tablet 1 mg PO DAILY Qty: 90 RF: 3 methotrexate sodium 2.5 mg tablet See Rx Instructions PO .COMPLEX Qty: 40 RF: 3 prednisone 2.5 mg tablet 2.5 mg PO DAILY Qty: 30 RF: 3 omeprazole 20 mg capsule,delayed release(DR/EC) 20 mg PO BID Qty: 60 RF: 3 Xeljanz XR 11 mg tablet extended release 24 hr 11 mg PO DAILY Qty: 30 RF: 1 hydrocodone-acetaminophen 10-325 mg tablet 1 tab PO Q6H PRN (Reason: Pain) Qty: 30 RF: 0 Held aspirin [Adult Aspirin Regimen] 81 mg tablet,delayed release (DR/EC) 81 mg PO DAILY RF: 0 Hold Instructions: Resume on 03/15/20. Resume this dose of aspirin after your 30 days of full strength aspirin for DVT prophylaxis Discharge Orders: Discharge Order (Routine); Ordered 02/15/20 Ordered By: Kiki Trinidad Other Ambulatory Orders: DME: Walker (Order) Location: None Selected Ordered By: Kiki Trinidad Referrals: [facility] [Outside] (Called [place] to inform them of discharge home.) Kiki Trinidad MD [Physician] - 03/03/20 1:00 pm (First visit is for a nurse visit for staple evaluation and removal. that is on March 03 at 1:00pm. Also, please follow-up with me on March 08, Friday, at 1:45 PM.) Discharge Diet: Advance as tolerated Discharge Activity: Increase activity as tolerated and Use walker/crutches as instructed Patient Instructions: Aspirin (By mouth), Celecoxib (By mouth), Total Knee Replacement (DC) Activity Restrictions/Additional Instructions: Ice and elevation to right lower extremity. Range of motion per physical therapy. Gait training and ambulation with physical therapy. Discharge Attestations Time Spent in Discharge Care*: greater than 30 min Quality Metrics Clinical Quality Measures During this hospital stay, did patient experience: None Coding Level of Care Code Acute Coverer for [facility] Fwd Exam Comprehensive Diagnoses Primary osteoarthritis of right knee M17.11 History of total right knee replacement Z96.651
[2020-02-16 16:11] VITALS: BP 116/69; PULSE 52; RESP 18; TEMP 36.5; O2SAT 99
== END 2020-02-16 16:12 | disposition home health service (06) ==
LOC: MEDSURG 09:42
PROVIDERS: Admitting Provider Specialist; PCP Family Medicine; Visit Provider Specialist
PROC: (CPT 27447; principal; 2020-02-15 07:00)
DX: M17.11 Unilateral primary osteoarthritis, right knee (principal); R26.81 Unsteadiness on feet; Z96.651 Presence of right artificial knee joint; I25.10 Atherosclerotic heart disease of native coronary artery without angina pectoris; I10 Essential (primary) hypertension; I25.2 Old myocardial infarction; J44.9 Chronic obstructive pulmonary disease, unspecified; K21.9 Gastro-esophageal reflux disease without esophagitis; E78.5 Hyperlipidemia, unspecified; Z86.73 Personal history of transient ischemic attack (TIA), and cerebral infarction without residual deficits; M79.7 Fibromyalgia; F17.210 Nicotine dependence, cigarettes, uncomplicated
CPT/HCPCS: 27447; 12345; 36415; 51702; 73560; 80048; 80053; 85025; 93005; 96374; 96375; 97110; 97116; 97161; 97165; 97530; C1776; C9290; G0378; J0131; J0690; J1100; J2250; J2405; J2704; J2795; J3010; J3370; J3490; J7030; J7512

== ENCOUNTER → 2020-03-08 13:45 | Outpatient (BNVA) | payer MEDICARE, MEDICAID, SELFPAY | PROVIDERS: PCP Family Medicine; Visit Provider Specialist | DX: Z98.890 Other specified postprocedural states (principal); Z96.641 Presence of right artificial hip joint | CPT/HCPCS: 73560; 73565 ==

== ENCOUNTER 2020-04-04 13:12 | Outpatient (CLI) | payer MEDICARE, MEDICAID, SELFPAY ==
--- NOTE | 2020-04-04 13:18 | XRR_ITS ---
PROCEDURE INFORMATION: Exam: XR Bilateral Knees, Standing AP Exam date and time: 04/04/2020 1:42 PM Age: 64 years old Clinical indication: Condition or disease; Other: S/P right knee replacement; Patient HX: Right tka 02/15/20. S/P followup right knee tka; Additional info: Post operative TECHNIQUE: Imaging protocol: XR of the bilateral knees. Views: Standing AP. COMPARISON: CR XR knees AP WB w RT lmt ORTH 03/08/2020 1:50 PM FINDINGS: Bones/joints: Total right knee arthroplasty in place. Components appear well positioned and well conjugated. Soft tissues: Normal. XR/XR knees AP WB w RT lmt ORTH IMPRESSION: Total right knee arthroplasty in place.
== END 2020-04-04 13:13 | disposition home or self-care (01) ==
LOC: RAD 13:15
PROVIDERS: PCP Family Medicine; Visit Provider Specialist
DX: Z96.651 Presence of right artificial knee joint (principal)
CPT/HCPCS: 73560; 73565

== ENCOUNTER 2020-04-05 08:29 | Emergency (ER) | payer MEDICARE, MEDICAID, SELFPAY ==
[2020-04-05] VITALS (10 sets, daily range): BP systolic 93–126; BP diastolic 49–80; PULSE 55–61; RESP 12–19; TEMP 36.8; O2SAT 93–99; BMI 26.2
--- NOTE | 2020-04-05 08:35 | ECG_ITS ---
[facility] Test Date: 2020-04-05 Pat Name: Natacha Garcia Department: Room: Gender: Female Estate Planning Director: : 1955 Requested By: Angela Hubbard Order Number: [id number] Yahaira MD: Lenore Brink M.D. Measurements Intervals [place] Rate: 58 P: 44 MO: 145 QRS: -15 QRSD: 114 T: -18 QT: 484 QTc: 476 Interpretive Statements SINUS BRADYCARDIA SEPTAL MYOCARDIAL INFARCTION , PROBABLY OLD [40+ ms Q WAVE IN V1/V2] MODERATE T-WAVE ABNORMALITY, CONSIDER ANTEROLATERAL ISCHEMIA [-0.1+ mV T WAVE IN V3-V6] Compared to ECG 02/11/2020 11:44:20 No significant changes Electronically Signed On 04-05-2020 16:48:41 CDT by Lenore Brink M.D. [id number]
--- NOTE | 2020-04-05 08:41 | ED_ITS ---
HPI - Chest Pain General: Chief Complaint: Chest Pain Stated Complaint: CHEST PAIN Time Seen by Provider: 04/05/20 08:33 History of Present Illness: HPI narrative: This patient is a 64-year-old female presenting with chest pain. She was at Dr. Conner's office for follow-up right total knee replacement and was complaining of chest pain so she was sent here by ambulance. She reports an episode of chest pain last night as well that responded to treatment for reflux. She has had prior heart attacks. She thinks the last time she had an episode like this was about a year and a half ago. She took 1 of her own nitro and it took her pain from 10-8. She still quite uncomfortable. She has radiation of the pain to her neck. She has some mild shortness of breath. No vomiting or diaphoresis at this point. She has a history of rheumatoid arthritis. She also has some COPD. MD complaint: chest pain Pertinent past history: coronary artery disease and prior ME Timing of current episode: episodic Prior episodes: Yes Onset: during rest Pain location: substernal Pain radiation: neck Quality: aching and heaviness Associated symptoms: Deny abdominal pain, dyspnea, fever(s), nausea or vomiting Review of Systems General: Reports: 10 or more systems reviewed and unremarkable except in HPI and below Const: Denies: fever(s), chills, fatigue or malaise Eyes: Denies: change in vision ENMT: Denies: odynophagia Card: Denies: chest pain or swelling of feet/ankles Resp: Denies: dyspnea, productive cough or non-productive cough GI: Denies: abdominal pain, nausea or vomiting : Denies: flank pain or difficulty voiding Musc: Denies: neck pain or back pain Skin/Breast: Denies: rash Neuro: Denies: headache(s), numbness in extremities or weakness in extremities [place]/Lymph: Denies: easy bruising or easy bleeding PFSH ED PFSH: Medical History CAD (coronary artery disease) COPD (chronic obstructive pulmonary disease) Degenerative cervical spinal stenosis Degenerative disc disease, lumbar Dyslipidemia Fibromyalgia Immunosuppression Medication monitoring encounter ME, acute, non ST segment elevation Mitral regurgitation Osteoarthritis of left knee Seropositive rheumatoid arthritis of multiple joints Small fiber neuropathy Tobacco abuse Surgical History H/O adenoidectomy H/O bilateral cataract extraction H/O hemorrhoidectomy H/O: hysterectomy History of appendectomy History of intestinal surgery History of total right knee replacement Hx of section two times Hx of cholecystectomy Family History Other CAD (coronary artery disease) Cancer Chronic kidney disease (CKD) Hypertension Stroke Denies family history of Rheumatoid arthritis Diabetes Systemic lupus erythematosus (SLE) in adult Lung disease Social History Smoking and tobacco status: current every day smoker cigarettes Alcohol intake: never Marital status: Single Current occupational status: disabled History of recent travel: No (10/05/19) Physical Exam Const: COMMON NORMALS: no acute distress, patient oriented x3, no limitations and alert GENERAL APPEARANCE: cooperative and comfortable HENMT: HEAD & SCALP: normal to inspection FACE & SINUS: normal facial exam Eye: GENERAL EYE: appearance normal, both eyes and all related structures Neck/C-Spine: COMMON NORMALS: supple, no meningeal signs and no JVD Chest: COMMONS NORMALS: normal inspection of the chest (Well-healed scar where the patient is to have a port for infusions for rheumatoid arthritis) Resp: COMMON NORMALS: normal respiratory effort, No use of accessory muscles and clear to auscultation bilaterally AUSCULTATION: clear to auscultation bilaterally Cardio: COMMON NORMALS: no JVD, regular rate, regular rhythm and No murmurs present (Cardio) RATE: regular rate RHYTHM: regular rhythm GI: COMMON NORMALS: Normal to inspection, nondistended, normoactive bowel so unds present, Soft to palpation and non-tender INSPECTION: Yes normal to inspection AUSCULTATION: Yes normoactive bowel sounds PALPATION: Yes Soft to palpation Back/Pelvis: COMMON NORMALS: thoracic and lumbar spine normal to inspection Extremity: GENERAL: Yes normal exam except as noted OTHER: Nicely healing surgical scar over the right knee. Mild diffuse swelling of the right leg. Neuro: COMMON NORMALS: patient oriented x3, moves all extremities, no focal motor deficits and no sensory deficits noted SENSORIUM/ORIENTATION: Yes alert MENINGEAL SIGNS: Yes no meningeal signs Psych: COMMON NORMALS: mental status grossly normal, cooperative and normal affect Skin: COMMON NORMALS: no rashes or lesions noted and turgor normal GENERAL SKIN EXAM: no rashes or lesions noted and turgor normal Course ED course: The patient had resolution of her chest pain with no further interventions. She was eager to be discharged. Her EKG is unchanged from prior and unchanged while in the ED. Her troponin was negative and the delta troponin was negative. Other labs are unremarkable. We discussed that she has some risk factors and I would like to keep her in the hospital but she wants to go home. She understands that we have not ruled out an impending cardiac event. She will follow-up with cardiology. She also understands to return if she has any further episodes of chest pain and nitro does not relieve them. Vital Signs: Vital signs: Vital Signs Temperature 98.2 F 04/05/20 08:32 Pulse Rate 60 04/05/20 11:43 Respiratory Rate 16 04/05/20 11:43 Blood Pressure 126/80 04/05/20 11:43 Pulse Oximetry 97 04/05/20 11:43 MDM - Chest Pain MDM Narrative: Medical decision making narrative: History of MIs with no history of stents. Abnormal EKG at baseline. Patient had an episode of chest pain last night which resolved with an acids. She had another episode this morning at Dr. Conner's office which improved with nitro. It gradually went away in the ED. She does not want to stay in the hospital and told me that upfront. Lab Data: Labs: Lab Results 04/05/20 04/05/20 04/05/20 Range/Units 08:34 08:34 08:34 WBC 9.8 (4.0-10.0) 10^3/ uL RBC 3.68 L (4.1-5.3) 10^6/u L Hgb 10.0 L (11.5-15.3) g/dL Hct 33.0 L (37.0-47.0) % MCV 89.7 (81-99) fL MCH 27.2 L (28.0-34.0) pg MCHC 30.3 (30.0-36.0) g/dL RDW 18.5 H (12.1-15.1) % Plt Count 178 (130-400) 10^3/c mm MPV 12.4 H (7.4-10.4) fL Neut % (Auto) 86.2 % Lymph % (Auto) 8.1 % [place] % (Auto) 4.7 % Eos % (Auto) 0.4 % Baso % (Auto) 0.3 % Neut # (Auto) 8.41 H (1.8-7.7) 10^3/u L Lymph # (Auto) 0.8 (0.8-4.8) 10^3/u L [place] # (Auto) 0.5 (0.2-0.9) 10^3/u L Eos # (Auto) 0.0 (0.0-0.8) 10^3/u L Baso # (Auto) 0.0 (0.0-0.1) 10^3/u L Nucleated RBC % (a uto) 0 % Nucleated RBCs # 0.0 /100WBC PT 12.20 (10.5-13.3) SECO NDS INR 0.88 (0.8-1.2) Sodium 140 (136-145) mmol/L Potassium 3.8 (3.5-5.1) mmol/L Chloride 101 (98-107) mmol/L Carbon Dioxide 31 H (22-29) mmol/L Anion Gap 11.8 (5-19) BUN 13 (8-23) mg/dL Creatinine 0.9 (0.5-0.9) mg/dL GFR Calculation 63.4 L (90-130) mL/min Glucose 108 (65-115) mg/dL Calculated Osmolal ity 287 (285-295) mOsm/k g Calcium 8.4 L (8.5-10.5) mg/dL Total Bilirubin 0.2 (0.15-1.2) mg/dL AST 26 (0-32) U/L ALT 16 (0-33) U/L Alkaline Phosphata se 163 H (35-105) IU/L Troponin T Baselin e (0-10) ng/L Troponin T 120 Min [place] (0-10) ng/L Delta Troponin T (0-10) ABS# Total Protein 6.7 (6.6-8.7) g/dL Albumin 4.1 (3.5-5.2) g/dL Globulin 2.6 (1.3-4.6) g/dL 04/05/20 04/05/20 Range/Units 08:34 10:26 WBC (4.0-10.0) 10^3/ uL RBC (4.1-5.3) 10^6/u L Hgb (11.5-15.3) g/dL Hct (37.0-47.0) % MCV (81-99) fL MCH (28.0-34.0) pg MCHC (30.0-36.0) g/dL RDW (12.1-15.1) % Plt Count (130-400) 10^3/c mm MPV (7.4-10.4) fL Neut % (Auto) % Lymph % (Auto) % [place] % (Auto) % Eos % (Auto) % Baso % (Auto) % Neut # (Auto) (1.8-7.7) 10^3/u L Lymph # (Auto) (0.8-4.8) 10^3/u L [place] # (Auto) (0.2-0.9) 10^3/u L Eos # (Auto) (0.0-0.8) 10^3/u L Baso # (Auto) (0.0-0.1) 10^3/u L Nucleated RBC % (a uto) % Nucleated RBCs # /100WBC PT (10.5-13.3) SECO NDS INR (0.8-1.2) Sodium (136-145) mmol/L Potassium (3.5-5.1) mmol/L Chloride (98-107) mmol/L Carbon Dioxide (22-29) mmol/L Anion Gap (5-19) BUN (8-23) mg/dL Creatinine (0.5-0.9) mg/dL GFR Calculation (90-130) mL/min Glucose (65-115) mg/dL Calculated Osmolal ity (285-295) mOsm/k g Calcium (8.5-10.5) mg/dL Total Bilirubin (0.15-1.2) mg/dL AST (0-32) U/L ALT (0-33) U/L Alkaline Phosphata se (35-105) IU/L Troponin T Baselin e 16 H (0-10) ng/L Troponin T 120 Min [place] 12.30 H (0-10) ng/L Delta Troponin T -3.70 L (0-10) ABS# Total Protein (6.6-8.7) g/dL Albumin (3.5-5.2) g/dL Globulin (1.3-4.6) g/dL EKG Data^: EKG 1: EKG interpretation time: 08:47 Interpretation: Sinus bradycardia with a rate of 58. Normal intervals with the exception of the QRS duration which is 114. Inverted T waves in 3, aVF, V3 through V6. These were present and are unchanged from prior EKG. EKG 2: EKG interpretation time: 10:32 Interpretation: Sinus bradycardia with a rate of 58. QRS duration is 120. Other intervals are normal. Inverted T waves unchanged from prior EKG. Discharge Plan Discharge Patient Disposition: Home, Self-Care Clinical Impression: Chest pain Qualifiers: Chest pain type: unspecified Qualified Code(s): R07.9 - Chest pain, unspecified Condition: Stable Prescriptions: No Action nitroglycerin [Nitrostat] 0.4 mg tablet, sublingual 0.4 mg SUBLINGUAL Q5M PRN (Reason: chest pain) Qty: 25 RF: 4 metoprolol tartrate 25 mg tablet 25 mg PO BID RF: 0 furosemide 20 mg tablet 20 mg PO QAM RF: 0 potassium chloride 10 mEq tablet extended release 10 meq PO DAILY RF: 0 pregabalin [Lyrica] 100 mg capsule 100 mg PO TID RF: 0 mirtazapine 30 mg tablet 30 mg PO BEDTIME RF: 0 albuterol sulfate [ProAir HFA] 90 mcg/actuation HFA aerosol inhaler 2 puff INHALATION Q6H PRN (Reason: sob) RF: 0 tizanidine 4 mg capsule 4 mg PO QID PRN (Reason: unknown) RF: 0 alprazolam 0.25 mg tablet 0.25 mg PO BID RF: 0 levothyroxine 25 mcg capsule 25 mcg PO DAILY RF: 0 Movantik 25 mg tablet 25 mg PO QAM PRN (Reason: unknown) RF: 0 aspirin [Adult Aspirin Regimen] 81 mg tablet,delayed release (DR/EC) 81 mg PO DAILY RF: 0 Hold Instructions: Resume on 03/15/20. Resume this dose of aspirin after your 30 days of full strength aspirin for DVT prophylaxis methotrexate sodium 2.5 mg tablet See Rx Instructions PO .COMPLEX Qty: 40 RF: 3 prednisone 2.5 mg tablet 2.5 mg PO DAILY Qty: 30 RF: 3 omeprazole 20 mg capsule,delayed release(DR/EC) 20 mg PO BID Qty: 60 RF: 3 Xeljanz XR 11 mg tablet extended release 24 hr 11 mg PO DAILY Qty: 30 RF: 1 Multiple Vitamins Tablet 1 tab PO DAILY RF: 0 albuterol sulfate 2.5 mg /3 mL (0.083 %) solution for nebulization 2.5 mg inhalation Q6H PRN (Reason: Shortness Of Breath) RF: 0 Restasis 0.05 % dropperette 1 drp ophthalmic (eye) BID RF: 0 duloxetine 60 mg capsule,delayed release(DR/EC) 60 mg PO BEDTIME RF: 0 Metamucil See Rx Instructions .ROUTE .COMPLEX RF: 0 hydrocodone-acetaminophen 10-325 mg tablet 1 - 2 tab PO Q4H PRN (Reason: Pain) RF: 0 simvastatin 20 mg tablet 20 mg PO BEDTIME RF: 0 folic acid 1 mg tablet 2 mg PO DAILY RF: 0 Discharge Orders: Discharge Order (Routine); Ordered 04/05/20 Ordered By: Angela Richards Referrals: Mora Adamson MD [Primary Care Provider] - Sai Hart MD [Physician] - 4-7 days Discharge Diet: Usual diet Discharge Activity: Resume usual activity Patient Instructions: Chest Pain (ED) Activity Restrictions/Additional Instructions: Please call the cardiology office to arrange a follow-up appointment within the next week. Although the tests were normal that does not rule out a potential cardiac event in the near future. Return to the emergency department if you have chest pain that does not go away with nitro or any other new or concerning symptoms. Discharge Date/Time: 04/05/20 11:44 Coding Level of Care Code ED [facility] Emergency Services Manager for [facility] Exam Comprehensive
[2020-04-05 09:00] LABS: Basophils % 0.3 %; Eosinophils % 0.4 %; Lymphocytes # 0.8 10^3/uL (0.8-4.8); Lymphocytes % 8.1 %; Mean Corpuscular HGB Conc 30.3 g/dL (30.0-36.0); Mean Corpuscular Hemoglobin 27.2 pg (28.0-34.0); Mean Corpuscular Volume 89.7 fL (81-99); Mean Platelet Volume 12.4 fL (7.4-10.4); Monocytes # 0.5 10^3/uL (0.2-0.9); Monocytes % 4.7 %; Neutrophils # 8.41 10^3/uL (1.8-7.7); Neutrophils % 86.2 %; Nucleated Red Blood Cells % 0 %; Platelet Count 178 10^3/cmm (130-400); Red Blood Count 3.68 10^6/uL (4.1-5.3); Red Cell Distribution Width 18.5 % (12.1-15.1); White Blood Count 9.8 10^3/uL (4.0-10.0)
[2020-04-05] MEDS: sodium chloride 0.9% 500 ML 999 ML IV (09:11)
[2020-04-05 09:13] LABS: Alanine Aminotransferase 16 U/L (0-33); Albumin Level 4.1 g/dL (3.5-5.2); Alkaline Phosphatase 163 IU/L (35-105); Anion Gap 11.8 (5-19); Aspartate Amino Transferase 26 U/L (0-32); Blood Urea Nitrogen 13 mg/dL (8-23); Calcium 8.4 mg/dL (8.5-10.5); Carbon Dioxide 31 mmol/L (22-29); Chloride 101 mmol/L (98-107); Globulin 2.6 g/dL (1.3-4.6); Glomerular Filtration Rate 63.4 mL/min (90-130); Glucose 108 mg/dL (65-115); Osmolality Calculated 287 mOsm/kg (285-295); Potassium 3.8 mmol/L (3.5-5.1); Sodium 140 mmol/L (136-145); Total Bilirubin 0.2 mg/dL (0.15-1.2); Total Protein 6.7 g/dL (6.6-8.7)
[2020-04-05 09:16] LABS: Troponin(5th) Baseline 16 ng/L (0-10)
--- NOTE | 2020-04-05 09:18 | PC.NURSE ---
Pt provided with warm blanket per request. Pt call light in reach, no needs at this time.
[2020-04-05 09:23] LABS: INR 0.88 (0.8-1.2)
--- NOTE | 2020-04-05 09:29 | PC.NURSE ---
Pt got up to BSC without assist. Pt back to bed with no difficulty, states I feel much better .
--- NOTE | 2020-04-05 10:23 | PC.NURSE ---
2nd EKG done at bedside, provided to doctor. Pt up to BSC.
--- NOTE | 2020-04-05 10:35 | ECG_ITS ---
[facility] Test Date: 2020-04-05 Pat Name: Natacha Garcia Department: Room: Gender: Female Evaporator: : 1955 Requested By: Angela Hubbard Order Number: [id number] Yahaira MD: Lenore Brink M.D. Measurements Intervals [place] Rate: 58 P: 52 [place]: 157 QRS: -14 QRSD: 120 T: -16 QT: 485 QTc: 477 Interpretive Statements SINUS BRADYCARDIA SEPTAL MYOCARDIAL INFARCTION , PROBABLY OLD [40+ ms Q WAVE IN V1/V2] MODERATE T-WAVE ABNORMALITY, CONSIDER ANTEROLATERAL ISCHEMIA [-0.1+ mV T WAVE IN V3-V6] Compared to ECG 04/05/2020 08:47:57 No significant changes Electronically Signed On 04-05-2020 16:59:44 CDT by Lenore Brink M.D. [id number]
--- NOTE | 2020-04-07 13:20 | DCPLANNER ---
rig manager had message to schedule a follow up appointment for patient with [facility]. rig manager called [facility], spoke with Araseli, gave clinic patients information. rig manager was told that patients information would be printed and reviewed. Clinic will call patient with appointment information.
--- NOTE | 2020-04-13 15:35 | DCPLANNER ---
Patient has a follow up appointment scheduled for Friday, April 26, 2020 at 9:30 at [facility] with Kristi Mosley. Clinic will call patient with appointment information.
--- NOTE | 2020-05-10 14:56 | DCPLANNER ---
Patients appointment scheduled for 04.26.20 with [facility] was cancelled.
== END 2020-04-05 11:44 | disposition home or self-care (01) ==
PROVIDERS: Emergency Provider Emergency Medicine; PCP Family Medicine
DX: R07.9 Chest pain, unspecified (principal); Z79.82 Long term (current) use of aspirin; I25.10 Atherosclerotic heart disease of native coronary artery without angina pectoris; J44.9 Chronic obstructive pulmonary disease, unspecified; E78.5 Hyperlipidemia, unspecified; I25.2 Old myocardial infarction; F17.210 Nicotine dependence, cigarettes, uncomplicated
CPT/HCPCS: 12345; 36415; 80053; 84484; 85025; 85610; 93005; 99284; J7040

== ENCOUNTER → 2020-05-04 12:28 | Outpatient (BNVA) | payer MEDICARE, MEDICAID, SELFPAY | PROVIDERS: PCP Family Medicine; Visit Provider Internal Medicine Rheumatology | DX: M05.79 Rheumatoid arthritis with rheumatoid factor of multiple sites without organ or systems involvement (principal); Z96.651 Presence of right artificial knee joint; M75.51 Bursitis of right shoulder; M75.52 Bursitis of left shoulder; D50.9 Iron deficiency anemia, unspecified; Z79.899 Other long term (current) drug therapy; M79.7 Fibromyalgia | CPT/HCPCS: 99214 ==

== ENCOUNTER → 2020-06-07 08:08 | Outpatient (BNVA) | payer MEDICARE, MEDICAID, SELFPAY | PROVIDERS: PCP Family Medicine; Visit Provider Specialist | DX: Z96.651 Presence of right artificial knee joint (principal) | CPT/HCPCS: 73560; 73565 ==

== ENCOUNTER → 2020-08-03 10:15 | Outpatient (BNVA) | payer MEDICARE, MEDICAID, SELFPAY | PROVIDERS: PCP Family Medicine; Visit Provider Specialist | DX: Z96.651 Presence of right artificial knee joint (principal); M17.11 Unilateral primary osteoarthritis, right knee | CPT/HCPCS: 73560; 73565 ==

== ENCOUNTER → 2020-09-05 08:57 | Outpatient (BNVA) | payer MEDICARE, MEDICAID, SELFPAY | PROVIDERS: PCP Family Medicine; Visit Provider Internal Medicine Rheumatology | DX: M05.79 Rheumatoid arthritis with rheumatoid factor of multiple sites without organ or systems involvement (principal); M17.12 Unilateral primary osteoarthritis, left knee; Z79.899 Other long term (current) drug therapy; M79.7 Fibromyalgia; D50.9 Iron deficiency anemia, unspecified; R53.83 Other fatigue; F50.89 Other specified eating disorder; Z68.27 Body mass index [BMI] 27.0-27.9, adult; F17.210 Nicotine dependence, cigarettes, uncomplicated | CPT/HCPCS: 36415; 82728; 83540; 83550; 99214 ==

== ENCOUNTER 2020-10-03 14:06 | Outpatient (CLI) | payer MEDICARE, MEDICAID, SELFPAY ==
--- NOTE | 2020-10-03 14:15 | MM_ITS ---
WS: [id number] BILATERAL DIGITAL SCREENING MAMMOGRAPHY WITH CAD CLINICAL INFORMATION: SCREENING HISTORY: Screening mammogram. No current complaints. COMPARISON: TECHNIQUE: Bilateral CC and MLO views. FINDINGS: Scattered fibroglandular densities bilaterally. No suspicious focal mass, asymmetry, calcifications, or architectural distortion. No evidence of malignancy. Vascular calcification. Punctate incidental c alcification right breast. MM/[id number] IMPRESSION: BI-RADS: 2-Benign FOLLOW UP: 1 Year Follow-up Recommend return to annual screening mammography.
== END 2020-10-03 14:07 | disposition home or self-care (01) ==
LOC: RADSHAW 14:11
PROVIDERS: PCP Family Medicine; Visit Provider Family Medicine
DX: Z12.31 Encounter for screening mammogram for malignant neoplasm of breast (principal)
CPT/HCPCS: 77067

== ENCOUNTER → 2020-11-29 12:27 | Outpatient (BNVA) | payer MEDICARE, MEDICAID, SELFPAY | PROVIDERS: PCP Family Medicine; Visit Provider Internal Medicine Rheumatology | DX: M05.79 Rheumatoid arthritis with rheumatoid factor of multiple sites without organ or systems involvement (principal); F11.90 Opioid use, unspecified, uncomplicated; Z79.899 Other long term (current) drug therapy; Z11.59 Encounter for screening for other viral diseases; Z11.1 Encounter for screening for respiratory tuberculosis; M48.02 Spinal stenosis, cervical region; M79.7 Fibromyalgia; F17.210 Nicotine dependence, cigarettes, uncomplicated | CPT/HCPCS: 80306; 99214; 99215 ==

== ENCOUNTER 2020-11-30 10:24 | Outpatient (CLI) | payer MEDICARE, MEDICAID, SELFPAY ==
[2020-11-30 11:10] LABS: Basophils # 0.1 10^3/uL (0.0-0.1); Basophils % 0.9 %; Eosinophils # 0.1 10^3/uL (0.0-0.8); Eosinophils % 1.4 %; Hematocrit 36.2 % (37.0-47.0); Hemoglobin 11.3 g/dL (11.5-15.3); Lymphocytes # 0.9 10^3/uL (0.8-4.8); Lymphocytes % 15.3 %; Mean Corpuscular HGB Conc 31.2 g/dL (30.0-36.0); Mean Corpuscular Hemoglobin 28.4 pg (28.0-34.0); Monocytes # 0.7 10^3/uL (0.2-0.9); Monocytes % 12.5 %; Neutrophils % 69.5 %; Nucleated Red Blood Cells % 0 %; Platelet Count 188 10^3/cmm (130-400); Red Blood Count 3.98 10^6/uL (4.1-5.3); Red Cell Distribution Width 17.7 % (12.1-15.1); White Blood Count 5.6 10^3/uL (4.0-10.0)
[2020-11-30 11:29] LABS: Alanine Aminotransferase 20 U/L (0-33); Albumin Level 4.3 g/dL (3.5-5.2); Alkaline Phosphatase 174 IU/L (35-105); Aspartate Amino Transferase 27 U/L (0-32); C Reactive Protein 5.9 mg/L (0.0-4.9); Globulin 3.1 g/dL (1.3-4.6); Glomerular Filtration Rate 63.2 mL/min (90-130); Total Bilirubin 0.2 mg/dL (0.15-1.2); Total Protein 7.4 g/dL (6.6-8.7)
[2020-11-30 11:52] LABS: Hepatitis B Core AB, Total Non-Reactive (Nonreactive); Hepatitis B Surface Antigen Non-Reactive (Nonreactive); Hepatitis C Virus Antibody Non-Reactive (Nonreactive)
[2020-12-04 12:03] LABS: Quantiferon Mitogen 8.95 IU/mL; Quantiferon Nil 0.03 IU/mL; Quantiferon TB Gold NEGATIVE (NEGATIVE)
== END 2020-11-30 10:25 | disposition home or self-care (01) ==
PROVIDERS: Internal Medicine Rheumatology; PCP Family Medicine; Visit Provider Family Medicine
DX: Z79.899 Other long term (current) drug therapy (principal); F11.90 Opioid use, unspecified, uncomplicated
CPT/HCPCS: 36415; 80076; 82565; 85025; 86140; 86480; 86704; 86803; 87340

== ENCOUNTER → 2020-12-20 09:42 | Outpatient (BNVA) | payer MEDICARE, MEDICAID, SELFPAY | PROVIDERS: PCP Family Medicine; Visit Provider Specialist | DX: M25.569 Pain in unspecified knee (principal) | CPT/HCPCS: 73560; 73565 ==

== ENCOUNTER 2021-02-20 10:43 | Observation (INO) | payer MEDICARE, MEDICAID, SELFPAY ==
[2021-02-20] VITALS (9 sets, daily range): BP systolic 90–129; BP diastolic 47–87; PULSE 55–65; RESP 15–20; TEMP 36.5–37.1; O2SAT 96–100; BMI 28.3
--- NOTE | 2021-02-20 10:52 | XRR_ITS ---
PROCEDURE INFORMATION: Exam: XR Chest Exam date and time: 02/20/2021 11:06 AM Age: 65 years old Clinical indication: Cough and dyspnea; Patient HX: Dizziness, weakness and diarrhea x 1 week, pain between shoulder blades; Additional info: Dyspnea/cough TECHNIQUE: Imaging protocol: XR of the chest. Views: 1 view. COMPARISON: No relevant prior studies available. FINDINGS: Lungs: No focal peripheral lung consolidation, air bronchogram formation, or silhouette sign. Pleural spaces: No pleural effusion or pneumothorax. Heart/Mediastinum: The cardiac silhouette is not enlarged. The mediastinal contours are normal. Bones/joints: No acute osseous abnormality. XR/XR chest 1V portable [id number] IMPRESSION: No sign of pneumonia.
--- NOTE | 2021-02-20 10:54 | W.ED.GENADLT ---
HPI - General Adult General: Chief complaint: Weakness Stated complaint: WEAKNESS, LOW BP Time Seen by Provider: 02/20/21 10:52 History of Present Illness: HPI narrative: 85-year-old female presents emergency room with complaints of generally not feeling well weak dizzy low blood pressure. She had a little bit of loose stools no vomiting. She is diabetic she has a history of coronary artery disease. She recently seen Dr. Salas there were no changes in her medications at that time. No particular concerns at that visit. She has a history of coronary disease hypertension and rheumatoid arthritis. Onset (ago): day(s) Severity: moderate Relieving factors: none Exacerbating factors: none Associated symptoms: Deny chest pain, confusion, cough, diaphoresis, decreased appetite, dyspnea, fevers/chills, headache(s), malaise, nausea, rash, palpitations, seizures, short of breath, syncope, vomiting or weakness Treatments prior to arrival: none Review of Systems Const: Denies: malaise or diaphoresis ENMT: Denies: throat pain, ear or mastoid pain, nasal discharge or nasal congestion Card: Denies: chest pain, palpitations or syncope Resp: Denies: dyspnea GI: Denies: nausea or vomiting : Denies: flank pain, difficulty voiding, dysuria, urinary frequency or urinary urgency Skin/Breast: Denies: rash Neuro: Denies: headache(s) or confusion PFSH ED PFSH: Medical History CAD (coronary artery disease) CHF (congestive heart failure) COPD (chronic obstructive pulmonary disease) Degenerative cervical spinal stenosis Degenerative disc disease, lumbar Dyslipidemia Essential hypertension Fatigue Fibromyalgia High risk medication use Immunization counseling Immunosuppression Iron deficiency anemia Knee pain Left ankle instability Medication monitoring encounter NV, acute, non ST segment elevation Mitral regurgitation Osteoarthritis of left knee Pagophagia Rheumatoid arthritis Seropositive rheumatoid arthritis of multiple joints Small fiber neuropathy Subacromial bursitis of both shoulders Tobacco abuse Surgical History H/O adenoidectomy H/O bilateral cataract extraction H/O hemorrhoidectomy H/O: hysterectomy History of appendectomy History of intestinal surgery History of total right knee replacement Hx of section two times Hx of cholecystectomy Family History Other CAD (coronary artery disease) Cancer Chronic kidney disease (CKD) Hypertension Stroke Denies family history of Rheumatoid arthritis Diabetes Systemic lupus erythematosus (SLE) in adult Lung disease Social History Smoking and tobacco status: current every day smoker cigarettes Alcohol intake: never Marital status: Single Current occupational status: disabled History of recent travel: No (10/05/19) Physical Exam Const: COMMON NORMALS: no acute distress GENERAL APPEARANCE: cooperative and comfortable ORIENTATION/CONSCIOUSNESS: Yes awake, Yes oriented to person, Yes oriented to place and Yes oriented to time HENMT: COMMON NORMALS: normocephalic, atraumatic and hearing grossly normal bilaterally HEAD & SCALP: normocephalic and atraumatic Neck/C-Spine: COMMON NORMALS: no JVD Resp: COMMON NORMALS: normal respiratory effort, No retractions, No use of accessory muscles and clear to auscultation bilaterally AUSCULTATION: clear to auscultation bilaterally Cardio: COMMON NORMALS: no JVD, regular rate, regular rhythm and No murmurs present (Cardio) RATE: regular rate RHYTHM: regular rhythm GI: COMMON NORMALS: Soft to palpation and No hepatosplenomegaly present AUSCULTATION: Yes normoactive bowel sounds PALPATION: Yes Soft to palpation, No Tenderness to palpation present (GI), No Guarding due to palpation present (GI) and Yes No hepatosplenomegaly present RECTAL EXAM: heme negative stool Extremity: COMMON NORMALS: normal to inspection, capillary refill normal, no clubbing, cyanosis or edema, no calf tenderness and no pedal edema Neuro: SENSORIUM/ORIENTATION: Yes oriented to person, Yes oriented to place and Yes oriented to time Skin: COMMON NORMALS: no rashes or lesions noted GENERAL SKIN EXAM: no rashes or lesions noted Course Vital Signs: Vital signs: Vital Signs Temperature 97.7 F 02/21/21 11:58 Pulse Rate 55 L 02/21/21 11:58 Respiratory Rate 17 02/21/21 11:58 Blood Pressure 127/81 02/21/21 13:40 Pulse Oximetry 94 02/21/21 11:58 MDM - General Adult MDM Narrative: Medical decision making narrative: Admit for anemia and work-up for acute blood loss. Lab Data: Labs: Lab Results 02/20/21 02/20/21 02/20/21 Range/Units 11:10 11:10 11:10 WBC 7.5 (4.0-10.0) 10^3/ uL RBC 2.97 L (4.1-5.3) 10^6/u L Hgb 7.6 L (11.5-15.3) g/dL Hct 25.3 L (37.0-47.0) % MCV 85.2 (81-99) fL MCH 25.6 L (28.0-34.0) pg MCHC 30.0 (30.0-36.0) g/dL RDW 16.3 H (12.1-15.1) % Plt Count 150 (130-400) 10^3/c mm MPV 13.0 H (7.4-10.4) fL Neut % (Auto) 70.1 % Lymph % (Auto) 20.7 % [place] % (Auto) 7.1 % Eos % (Auto) 1.3 % Baso % (Auto) 0.5 % Neut # (Auto) 5.25 (1.8-7.7) 10^3/u L Lymph # (Auto) 1.6 (0.8-4.8) 10^3/u L [place] # (Auto) 0.5 (0.2-0.9) 10^3/u L Eos # (Auto) 0.1 (0.0-0.8) 10^3/u L Baso # (Auto) 0.0 (0.0-0.1) 10^3/u L Nucleated RBC % (a uto) 0 % Nucleated RBCs # 0.0 /100WBC Sodium Cancelled Potassium Cancelled Chloride Cancelled Carbon Dioxide Cancelled Anion Gap Cancelled BUN Cancelled Creatinine Cancelled GFR Calculation Cancelled Glucose Cancelled Calculated Osmolal ity Cancelled Calcium Cancelled Phosphorus (2.5-4.5) mg/dL Magnesium (1.7-2.3) mg/dL Iron (37-145) ug/dL TIBC mcg/dl % Saturation (20-50) % Unsat Iron Binding (112-347) ug/dL Total Bilirubin Cancelled AST Cancelled ALT Cancelled Alkaline Phosphata se Cancelled Troponin T Baselin e 6 (0-10) ng/L Troponin T 120 Min [place] (0-10) ng/L Delta Troponin T (0-10) ABS# NT-Pro-B Natriuret Pep (0-125) pg/mL Total Protein Cancelled Albumin Cancelled Globulin Cancelled Vitamin B12 (232-1245) pg/mL Folate (4.8-37.3) ng/mL Procalcitonin (0-0.5) ng/mL TSH (0.27-4.20) uIU/ mL Free T4 (0.82-1.77) ng/d L Free T3 (2.0-4.4) PG/ML Urine Color (Yellow) Urine Appearance (CLEAR) Urine pH (5-7) Ur Specific Gravit y (1.005-1.030) Urine Protein (Negative) Urine Glucose (UA) (Normal) Urine Ketones (Negative) Urine Blood (Negative) Urine Nitrate (Negative) Urine Bilirubin (Negative) Urine Urobilinogen (Negative) mg/dL Ur Leukocyte Jazzy ase (Negative) Blood Type Rho(D) Type Antibody Screen Crossmatch 02/20/21 02/20/21 02/20/21 Range/Units 11:10 11:10 11:10 WBC (4.0-10.0) 10^3/ uL RBC (4.1-5.3) 10^6/u L Hgb (11.5-15.3) g/dL Hct (37.0-47.0) % MCV (81-99) fL MCH (28.0-34.0) pg MCHC (30.0-36.0) g/dL RDW (12.1-15.1) % Plt Count (130-400) 10^3/c mm MPV (7.4-10.4) fL Neut % (Auto) % Lymph % (Auto) % [place] % (Auto) % Eos % (Auto) % Baso % (Auto) % Neut # (Auto) (1.8-7.7) 10^3/u L Lymph # (Auto) (0.8-4.8) 10^3/u L [place] # (Auto) (0.2-0.9) 10^3/u L Eos # (Auto) (0.0-0.8) 10^3/u L Baso # (Auto) (0.0-0.1) 10^3/u L Nucleated RBC % (a uto) % Nucleated RBCs # /100WBC Sodium Potassium Chloride Carbon Dioxide Anion Gap BUN Creatinine GFR Calculation Glucose Calculated Osmolal ity Calcium Phosphorus 2.1 L (2.5-4.5) mg/dL Magnesium 1.1 L (1.7-2.3) mg/dL Iron 14 L (37-145) ug/dL TIBC 254 mcg/dl % Saturation 5.5 L (20-50) % Unsat Iron Binding 240 (112-347) ug/dL Total Bilirubin AST ALT Alkaline Phosphata se Troponin T Baselin e (0-10) ng/L Troponin T 120 Min [place] (0-10) ng/L Delta Troponin T (0-10) ABS# NT-Pro-B Natriuret Pep 613 H (0-125) pg/mL Total Protein Albumin Globulin Vitamin B12 173 L (232-1245) pg/mL Folate > 20.0 (4.8-37.3) ng/mL Procalcitonin 0.02 (0-0.5) ng/mL TSH 0.24 L (0.27-4.20) uIU/ mL Free T4 1.10 (0.82-1.77) ng/d L Free T3 2.3 (2.0-4.4) PG/ML Urine Color (Yellow) Urine Appearance (CLEAR) Urine pH (5-7) Ur Specific Gravit y (1.005-1.030) Urine Protein (Negative) Urine Glucose (UA) (Normal) Urine Ketones (Negative) Urine Blood (Negative) Urine Nitrate (Negative) Urine Bilirubin (Negative) Urine Urobilinogen (Negative) mg/dL Ur Leukocyte Jazzy ase (Negative) Blood Type Rho(D) Type Antibody Screen Crossmatch 02/20/21 02/20/21 02/20/21 Range/Units 13:00 13:09 13:09 WBC (4.0-10.0) 10^3/ uL RBC (4.1-5.3) 10^6/u L Hgb (11.5-15.3) g/dL Hct (37.0-47.0) % MCV (81-99) fL MCH (28.0-34.0) pg MCHC (30.0-36.0) g/dL RDW (12.1-15.1) % Plt Count (130-400) 10^3/c mm MPV (7.4-10.4) fL Neut % (Auto) % Lymph % (Auto) % [place] % (Auto) % Eos % (Auto) % Baso % (Auto) % Neut # (Auto) (1.8-7.7) 10^3/u L Lymph # (Auto) (0.8-4.8) 10^3/u L [place] # (Auto) (0.2-0.9) 10^3/u L Eos # (Auto) (0.0-0.8) 10^3/u L Baso # (Auto) (0.0-0.1) 10^3/u L Nucleated RBC % (a uto) % Nucleated RBCs # /100WBC Sodium 143 Potassium 3.9 Chloride 107 Carbon Dioxide 21 L Anion Gap 18.9 BUN 14 Creatinine 0.9 GFR Calculation 63.2 L Glucose 87 Calculated Osmolal ity 296 H Calcium 8.5 Phosphorus (2.5-4.5) mg/dL Magnesium (1.7-2.3) mg/dL Iron (37-145) ug/dL TIBC mcg/dl % Saturation (20-50) % Unsat Iron Binding (112-347) ug/dL Total Bilirubin 0.3 AST 17 ALT 9 Alkaline Phosphata se 133 H Troponin T Baselin e (0-10) ng/L Troponin T 120 Min [place] 6.00 (0-10) ng/L Delta Troponin T 0 (0-10) ABS# NT-Pro-B Natriuret Pep (0-125) pg/mL Total Protein 6.8 Albumin 3.7 Globulin 3.1 Vitamin B12 (232-1245) pg/mL Folate (4.8-37.3) ng/mL Procalcitonin (0-0.5) ng/mL TSH (0.27-4.20) uIU/ mL Free T4 (0.82-1.77) ng/d L Free T3 (2.0-4.4) PG/ML Urine Color (Yellow) Urine Appearance (CLEAR) Urine pH (5-7) Ur Specific Gravit y (1.005-1.030) Urine Protein (Negative) Urine Glucose (UA) (Normal) Urine Ketones (Negative) Urine Blood (Negative) Urine Nitrate (Negative) Urine Bilirubin (Negative) Urine Urobilinogen (Negative) mg/dL Ur Leukocyte Jazzy ase (Negative) Blood Type Cancelled Rho(D) Type Cancelled Antibody Screen Cancelled Crossmatch See Detail 02/20/21 02/20/21 Range/Units 13:09 13:30 WBC (4.0-10.0) 10^3/ uL RBC (4.1-5.3) 10^6/u L Hgb (11.5-15.3) g/dL Hct (37.0-47.0) % MCV (81-99) fL MCH (28.0-34.0) pg MCHC (30.0-36.0) g/dL RDW (12.1-15.1) % Plt Count (130-400) 10^3/c mm MPV (7.4-10.4) fL Neut % (Auto) % Lymph % (Auto) % [place] % (Auto) % Eos % (Auto) % Baso % (Auto) % Neut # (Auto) (1.8-7.7) 10^3/u L Lymph # (Auto) (0.8-4.8) 10^3/u L [place] # (Auto) (0.2-0.9) 10^3/u L Eos # (Auto) (0.0-0.8) 10^3/u L Baso # (Auto) (0.0-0.1) 10^3/u L Nucleated RBC % (a uto) % Nucleated RBCs # /100WBC Sodium Potassium Chloride Carbon Dioxide Anion Gap BUN Creatinine GFR Calculation Glucose Calculated Osmolal ity Calcium Phosphorus (2.5-4.5) mg/dL Magnesium (1.7-2.3) mg/dL Iron (37-145) ug/dL TIBC mcg/dl % Saturation (20-50) % Unsat Iron Binding (112-347) ug/dL Total Bilirubin AST ALT Alkaline Phosphata se Troponin T Baselin e (0-10) ng/L Troponin T 120 Min [place] (0-10) ng/L Delta Troponin T (0-10) ABS# NT-Pro-B Natriuret Pep (0-125) pg/mL Total Protein Albumin Globulin Vitamin B12 (232-1245) pg/mL Folate (4.8-37.3) ng/mL Procalcitonin (0-0.5) ng/mL TSH (0.27-4.20) uIU/ mL Free T4 (0.82-1.77) ng/d L Free T3 (2.0-4.4) PG/ML Urine Color Yellow (Yellow) Urine Appearance Clear (CLEAR) Urine pH 6.5 (5-7) Ur Specific Gravit y 1.005 (1.005-1.030) Urine Protein Neg (Negative) Urine Glucose (UA) Norm (Normal) Urine Ketones Negative (Negative) Urine Blood Neg (Negative) Urine Nitrate Negative (Negative) Urine Bilirubin Neg (Negative) Urine Urobilinogen Norm (Negative) mg/dL Ur Leukocyte Jazzy ase Negative (Negative) Blood Type O Negative Rho(D) Type Negative / 0 Antibody Screen Negative Crossmatch See Detail Discharge Plan Discharge Patient Disposition: Admitted As Inpatient Admit Provider: Tashi Kendall Clinical Impression: Iron deficiency anemia, Seropositive rheumatoid arthritis of multiple joints, Essential hypertension, Fibromyalgia Condition: Stable Discharge Diet: Cardiac Discharge Activity: Resume usual activity Coding Level of Care Code ED Guardian Family Member for Mason Myrick
[2021-02-20 11:29] LABS: Basophils % 0.5 %; Eosinophils # 0.1 10^3/uL (0.0-0.8); Eosinophils % 1.3 %; Hematocrit 25.3 % (37.0-47.0); Hemoglobin 7.6 g/dL (11.5-15.3); Lymphocytes # 1.6 10^3/uL (0.8-4.8); Lymphocytes % 20.7 %; Mean Corpuscular Hemoglobin 25.6 pg (28.0-34.0); Mean Corpuscular Volume 85.2 fL (81-99); Monocytes # 0.5 10^3/uL (0.2-0.9); Monocytes % 7.1 %; Neutrophils # 5.25 10^3/uL (1.8-7.7); Neutrophils % 70.1 %; Nucleated Red Blood Cells % 0 %; Platelet Count 150 10^3/cmm (130-400); Red Blood Count 2.97 10^6/uL (4.1-5.3); Red Cell Distribution Width 16.3 % (12.1-15.1); White Blood Count 7.5 10^3/uL (4.0-10.0)
[2021-02-20 11:49] LABS: Troponin(5th) Baseline 6 ng/L (0-10)
--- NOTE | 2021-02-20 12:52 | ECG_ITS ---
[facility] Test Date: 2021-02-20 Pat Name: Natacha Garcia Department: Room: Gender: Female Budget Examiner: : 1955 Requested By: Que Hubbard Order Number: [id number] Yahaira MD: Joey Stapleton M.D. Measurements Intervals [place] Rate: 54 P: 53 NC: 158 QRS: -7 QRSD: 115 T: -11 QT: 465 QTc: 441 Interpretive Statements SINUS BRADYCARDIA POSSIBLE ANTERIOR MYOCARDIAL INFARCTION , OF INDETERMINATE AGE [30 ms Q WAVE IN V3/V4, OR R < 0.2 mV IN V4] MODERATE T-WAVE ABNORMALITY, CONSIDER LATERAL ISCHEMIA [-0.1+ mV T WAVE IN I/aVL/V5/V6] Compared to ECG 04/05/2020 10:28:27 No significant changes Electronically Signed On 02-20-2021 19:13:57 CDT by Joey Stapleton M.D. [email or web address]
[2021-02-20 13:35] LABS: Add Urine Microscopic? NO; Charge for UA Resulting for Rev
[2021-02-20 13:38] LABS: Troponin 5 2HR Delta 0 ABS# (0-10)
[2021-02-20 13:53] LABS: Bilirubin Urine Neg (Negative); Blood Urine Neg (Negative); Glucose Urine UA Norm (Normal); Ketones Urine Negative (Negative); Leukocyte Esterase Urine Negative (Negative); Nitrate Urine Negative (Negative); Protein Urine Neg (Negative); Specific Gravity, Urine 1.005 (1.005-1.030); Urine Appearance Clear (CLEAR); Urine Color Yellow (Yellow); Urobilinogen Urine Norm (Negative); pH Urine 6.5 (5-7)
[2021-02-20 13:59] LABS: Alanine Aminotransferase 9 U/L (0-33); Albumin Level 3.7 g/dL (3.5-5.2); Alkaline Phosphatase 133 IU/L (35-105); Anion Gap 18.9 (5-19); Aspartate Amino Transferase 17 U/L (0-32); Blood Urea Nitrogen 14 mg/dL (8-23); Calcium 8.5 mg/dL (8.5-10.5); Carbon Dioxide 21 mmol/L (22-29); Chloride 107 mmol/L (98-107); Globulin 3.1 g/dL (1.3-4.6); Glomerular Filtration Rate 63.2 mL/min (90-130); Glucose 87 mg/dL (65-115); Osmolality Calculated 296 mOsm/kg (285-295); Potassium 3.9 mmol/L (3.5-5.1); Sodium 143 mmol/L (136-145); Total Bilirubin 0.3 mg/dL (0.15-1.2); Total Protein 6.8 g/dL (6.6-8.7)
--- NOTE | 2021-02-20 14:05 | CT_ITS ---
WS: [id number] CT ABDOMEN AND PELVIS WITH CONTRAST HISTORY: abd pain TECHNIQUE: Imaging performed of the abdomen and pelvis with IV contrast. Single phase imaging of the abdomen. Coronal and sagittal reformats are submitted. All CT scans at [facility] use at least one of these dose optimization techniques: automated exposure control; mA and/or kV adjustment per patient size (includes targeted exams where dose is matched to clinical indication); or iterativ e reconstruction. IV CONTRAST: Omnipaque 300; 95 mL IV. Oral contrast: No DLP: 1125.54 mGy.cm COMPARISON: 12/06/2016 Lower thorax: Lung bases are clear. Moderately enlarged heart. No hiatal hernia. Liver/biliary system: Normal size with no intrahepatic dilatation. Gallbladder: Status post cholecystectomy. No bile duct dilatation. Pancreas: Normal size pancreas and pancreatic duct. No adjacent inflammation. Spleen: Normal size spleen. No mass or infarct. Adrenal glands: Normal. Right kidney: Mild diffuse cortical thinning. No obstruction. No mass. Left kidney: Mild diffuse cortical thinning with no obstruction or mass. Aorta: Extensive atherosclerosis within the aorta. No aneurysm but there is calcified plaque and inti mal thickening. There are mild inflammatory changes surrounding the aorta at the level of the TRELL. Ne w findings since the prior exam. Lymphadenopathy: None. Free fluid: None. GI tract: Prior appendectomy. There is extensive moderate fecal retention. There is a row of surgical sutures in the distal small bowel. There is increase fluid but no obstruction. Abdominal wall: Unremarkable abdominal wall. No hernia. Pelvis: No free fluid or adenopathy within the pelvis. Prior hysterectomy. Bones: Unremarkable. CT/CT abdomen pelvis w con* [id number] IMPRESSION: 1. Moderate diffuse constipation. 2. Distal small bowel anastomotic sutures. No obstruction. There is a small am ount of increased fluid at the surgical anastomosis site which may be due to mi ld gastroenteritis. 3. Prior appendectomy, cholecystectomy and hysterectomy. 4. 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 5. Mild diffuse cortical thinning of each kidney.
[2021-02-20] MEDS: iohexol 300 mg/mL 100 mL Btl IV (14:21)
[2021-02-20 15:33] LABS: NT Pro B Type Natriuretic Pept 613 pg/mL (0-125); Procalcitonin 0.02 ng/mL (0-0.5); Thyroid Stimulating Hormone 0.24 uIU/mL (0.27-4.20)
[2021-02-20 15:44] LABS: Iron 14 ug/dL (37-145); Percent Saturation 5.5 % (20-50); Total Iron Binding Capacity 254 mcg/dl; Unsaturated Iron Binding 240 ug/dL (112-347)
--- NOTE | 2021-02-20 16:52 | ECG_ITS ---
[facility] Test Date: 2021-02-20 Pat Name: Natacha Garcia Department: Room: Gender: Female Milieu Counselor: : 1955 Requested By: Que Hubbard Order Number: [id number] Yahaira MD: Joey Stapleton M.D. Measurements Intervals [place] Rate: 60 P: 59 AK: 156 QRS: -3 QRSD: 118 T: -24 QT: 425 QTc: 428 Interpretive Statements SINUS RHYTHM MODERATE INTRAVENTRICULAR CONDUCTION DELAY [105+ ms QRS DURATION, 80+ ms Q/S IN V1/V2, NO Q AND 60+ ms R IN I/aVL/V5/V6] MODERATE T-WAVE ABNORMALITY, CONSIDER LATERAL ISCHEMIA [-0.1+ mV T WAVE IN I/aVL/V5/V6] Compared to ECG 02/20/2021 13:37:16 Intraventricular conduction delay now present Sinus bradycardia no longer present Myocardial infarct finding no longer present T-wave abnormality still present Possible ischemia still present Electronically Signed On 02-20-2021 19:12:57 CDT by Joey Stapleton M.D. [id number]
[2021-02-20 17:37] LABS: Troponin 5 6HR 7.02 ng/L (0-10); Troponin 5 6HR Delta 1.02 ng/L (0-12)
--- NOTE | 2021-02-20 18:22 | PM.HP ---
Providers/Chief Complaint Admitting Physician: Tashi Kendall MD Primary Care Provider: Mora Adamson MD Chief Complaint: WEAKNESS, LOW BP History of Present Illness Natacha Garcia is a 65 year old female with past medical history of CAD ?non-ST elevation NE, COPD, rheumatoid arthritis, mitral regurgitation, ischemic cardiomyopathy, chronic steroid for rheumatoid arthritis presents to the ER today with complaining of dizziness ongoing for last 1 week. He states last night and today morning she had severe dizziness when she was getting up from bed with almost passing out today morning so she presented to the ER. Patient has been having watery diarrhea for last 1 week. She states that all the symptoms and, calm, not foul-smelling. She denies any chest pain though complains of palpitations on and off for last 2 to 3 days. She states she takes her medications regularly. Denies any abdominal pain, nausea, vomiting, headache, dysuria, chest pain, difficulty in breathing more than normal. Patient last had colonoscopy many years ago and was reported normal. Blood work in the ER showed a white count 7.5, hemoglobin of 7.6 with last hemoglobin of 11.3 in November, sodium of 143, chloride of 107, creatinine of 0.6, BUN of 14, baseline troponin of 6 with a delta of 0 in 2 hours, calcium of 8.5, bilirubin of 0.3, AST/ALT of 17/9, alkaline phosphatase of 133 CT abdomen pelvis results as below. Review of Systems General: Reports: 10 or more systems reviewed and unremarkable except in HPI and below Const: Denies: fever(s), chills, body aches, change in appetite, change in weight, malaise, night sweats, diaphoresis, change in sleep pattern, daytime sleepiness or snoring Eyes: Denies: change in vision, blurry vision, photophobia, eye discomfort or eye discharge ENMT: Denies: throat pain, enlarged tonsils, hoarseness, mouth pain, oral sores, dry mouth, tinnitus, nasal congestion or post nasal drip Card: Denies: chest pain, palpitations, irregular heart rhythm, edema, swelling of feet/ankles, lightheadedness, syncope, pre-syncope, dyspnea on exertion, orthopnea, leg pain with exertion or acrocyanosis Resp: Denies: dyspnea, productive cough, non-productive cough, wheezing, stridor, pain on inspiration, change in phlegm color, hemoptysis or chest congestion GI: Denies: abdominal pain, nausea, vomiting, hematemesis, coffee ground emesis, dysphagia, heartburn, diarrhea, constipation, bloating, GI cramping, change in bowel habits, pain on defecation, hematochezia or melena : Denies: flank pain, dysuria, urinary frequency, urinary urgency, urinary hesitancy, nocturia or hematuria Musc: Denies: neck pain, back pain, extremity pain, joint pain, joint swelling, joint redness, joint stiffness or limited range of motion Neuro: Denies: headache(s), numbness in extremities, weakness in extremities, sensory changes, lack of coordination, difficulty walking, frequent falls, dizziness, vertigo, confusion, Slurred speech present, difficulty communicating thoughts or seizure-like activity Psych: Denies: anxiety, depression, mood swings, panic attacks, hopelessness or irritability Endo: Denies: polyuria, polydipsia, tired all the time, cold intolerance, excessive sweating, flushing or heat intolerance Justyn/Lymph: Denies: easy bruising or easy bleeding All/Imm: Denies: tongue swelling, facial swelling or acute wheezing Medications/Allergies Home Medications Medication Instructions Recorded Confirmed Last Taken Type albuterol sulfate 90 mcg/actuation 2 puff INHALATION Q6H PRN 10/04/19 02/20/21 Unknown History aerosol inhaler mirtazapine 30 mg tablet 30 mg PO BEDTIME tab 10/04/19 02/20/21 02/19/21 History pregabalin 100 mg capsule 100 mg PO TID 10/04/19 02/20/21 02/20/21 History tizanidine 4 mg capsule 4 mg PO QID PRN 10/04/19 02/20/21 04/05/20 History levothyroxine 25 mcg capsule 25 mcg PO DAILY cap 10/05/19 02/20/21 02/20/21 History nitroglycerin 0.4 mg sublingual 0.4 mg SUBLINGUAL Q5M PRN #25 tab 12/29/19 02/20/21 Unknown Rx tablet aspirin 81 mg tablet,delayed 81 mg PO DAILY 02/02/20 02/20/21 02/19/21 History release naloxegol 25 mg tablet 25 mg PO QAM PRN 02/02/20 02/20/21 02/14/20 History albuterol sulfate 2.5 mg INHALATION Q6H PRN 04/05/20 02/20/21 04/04/20 History duloxetine 60 mg PO BEDTIME 04/05/20 02/20/21 02/19/21 History lisinopril 5 mg tablet 5 mg PO DAILY #60 tab 07/21/20 02/20/21 02/20/21 Rx omeprazole 20 mg capsule,delayed 20 mg PO BID #60 cap 07/26/20 02/20/21 02/20/21 Rx release folic acid 1 mg tablet 2 mg PO DAILY #60 tab 09/05/20 02/20/21 02/20/21 Rx metoprolol tartrate 25 mg tablet 25 mg PO BID #180 tab 10/31/20 02/20/21 02/20/21 Rx potassium chloride 10 mEq 20 meq PO DAILY #180 tab 10/31/20 02/20/21 02/20/21 Rx tablet,extended release prednisone 2.5 mg tablet 2.5 mg PO BID #60 tab 11/29/20 02/20/21 02/20/21 Rx tofacitinib 11 mg tablet,extended 11 mg PO DAILY #30 tab 12/04/20 02/20/21 02/20/21 Rx release 24 hr simvastatin 20 mg tablet 20 mg PO BEDTIME #90 tab 01/18/21 02/20/21 02/19/21 Rx propranolol 10 mg tablet 10 mg PO TID PRN 02/09/21 02/20/21 Unknown History furosemide 40 mg PO DAILY 02/20/21 02/20/21 02/20/21 History loratadine 10 mg PO DAILY 02/20/21 02/20/21 02/20/21 History Allergies Allergy/AdvReac Type Severity Reaction Status Date / Time carbidopa [From Sinemet] Allergy Unknown Verified 02/20/21 10:56 etanercept [From Enbrel] Allergy Unknown Verified 02/20/21 10:56 latex Allergy Unknown Verified 02/20/21 10:56 levodopa [From Sinemet] Allergy Unknown Verified 02/20/21 10:56 propoxyphene [From Darvon] Allergy Unknown Verified 02/20/21 10:56 shrimp Allergy unknown Verified 02/20/21 10:56 PFSH Acute PFSH: Medical History (Updated 02/20/21 @ 18:27 by Tashi Kendall MD) CAD (coronary artery disease) CHF (congestive heart failure) COPD (chronic obstructive pulmonary disease) Degenerative cervical spinal stenosis Degenerative disc disease, lumbar Dyslipidemia Essential hypertension Fatigue Fibromyalgia High risk medication use Immunization counseling Immunosuppression Iron deficiency anemia Knee pain Left ankle instability Medication monitoring encounter NE, acute, non ST segment elevation Mitral regurgitation Osteoarthritis of left knee Pagophagia Rheumatoid arthritis Seropositive rheumatoid arthritis of multiple joints Small fiber neuropathy Subacromial bursitis of both shoulders Tobacco abuse Surgical History H/O adenoidectomy H/O bilateral cataract extraction H/O hemorrhoidectomy H/O: hysterectomy History of appendectomy History of intestinal surgery History of total right knee replacement Hx of section two times Hx of cholecystectomy Family History Other CAD (coronary artery disease) Cancer Chronic kidney disease (CKD) Hypertension Stroke Denies family history of Rheumatoid arthritis Diabetes Systemic lupus erythematosus (SLE) in adult Lung disease Social History Smoking and tobacco status: current every day smoker cigarettes Alcohol intake: never Marital status: Single Current occupational status: disabled History of recent travel: No (10/05/19) Vitals/I&O/Wt Last Vital Signs Temp 98.7 F 02/20/21 10:57 Pulse 65 02/20/21 18:10 Resp 16 02/20/21 18:10 BP 116/87 02/20/21 18:10 Pulse Ox 98 02/20/21 18:10 Weight last 48 hrs Weight 70.307 kg Physical Exam Narrative: EXAM NARRATIVE: General: No acute distress, AO x3, pale, anxious HEENT: PERRLA, pupils bilaterally equal and reactive Chest: Normal vesicular breath sounds, no added sounds, equal good air entry bilaterally CVS: S1-S2 regular, no murmurs, no tachycardia, no gallops, no rubs Abdomen: Soft, nontender, no organomegaly, bowel sounds present Neuro: No focal deficits, no facial deformity, AO x3, power 5/5 in all limbs Data : 02/20/21 11:10 02/20/21 13:00 A&P Assessment and plan (1) Anemia: Status: Acute (2) Diarrhea: Status: Acute (3) Essential hypertension: Status: Acute (4) CHF (congestive heart failure): Status: Acute Qualifiers: Heart failure type: unspecified Heart failure chronicity: acute on chronic Qualified Code(s): I50.9 - Heart failure, unspecified (5) CAD (coronary artery disease): Status: Acute Qualifiers: Coronary Disease-Associated Artery/Lesion type: [place] artery [place] vs. transplanted heart: [place] heart Associated angina: without angina Qualified Code(s): I25.10 - Atherosclerotic heart disease of [place] coronary artery without angina pectoris (6) COPD (chronic obstructive pulmonary disease): Status: Acute Additional A&P Information Dizziness secondary to acute anemia: Cannot rule out arrhythmia given history of CAD. Telemetry. Check magnesium, phosphorus. Anemia: Cannot rule out GI bleed especially with ongoing diarrhea and chronic use of steroids. Patient last had colonoscopy many years ago which was reported normal. 2 units of PRBC ordered from the ER. Stool for occult blood. Protonix 40 twice daily. Check iron panel, ferritin, vitamin B12, folate, reticulocyte count. CT abdomen pelvis results appreciated. Negative for any signs of colitis. Essential hypertension: Goal blood pressure less than 140/90 mmHg. For now continue with home dose of metoprolol. Hold off on home dose of lisinopril to avoid hypotension. History of CAD: History of ischemic cardiomyopathy: Check echocardiogram. For now hold off on aspirin given possible GI bleed. Check lipid panel. Continue with home dose of statin. Patient does not have any signs of angina at present. Patient did have possible VPCs during examination in the ER. Telemetry. COPD: Not in exacerbation at present. Continue other chronic medications including propanolol as needed, tizanidine as needed, prednisone 2.5 mg daily, Lyrica, mirtazapine, Cymbalta, albuterol as needed. Check TSH, free T3, free T4, HbA1c, lipid panel. Full code. No therapeutic DVT prophylaxis because of acute anemia. Cardiac diet. Attestations Medical Necessity Statement*: Admission for more than 2 midnights and history of CAD Time Spent in Patient Care: Greater than 35 minutes (>than 50% of time spent in counselling and/or direct pt care on unit). Coding Level of Care Code Acute Sharepoint Designer Developer for g Fwd Diagnoses Anemia D64.9 Diarrhea R19.7 Essential hypertension I10 CHF (congestive heart failure) I50.9 Heart failure type: unspecified Heart failure chronicity: acute on chronic CAD (coronary artery disease) I25.10 Coronary Disease-Associated Artery/Lesion type: [place] artery [place] vs. transplanted heart: [place] heart Associated angina: without angina COPD (chronic obstructive pulmonary disease) J44.9
[2021-02-20 18:50] LABS: Magnesium 1.1 mg/dL (1.7-2.3); Phosphorus 2.1 mg/dL (2.5-4.5)
[2021-02-20 19:07] LABS: Vitamin B12 173 pg/mL (232-1245)
[2021-02-20 19:21] LABS: Folate Level > 20.0 ng/mL (4.8-37.3)
[2021-02-20 19:21] LABS: INR 0.97 (0.8-1.2)
[2021-02-20 19:41] LABS: T3 Free 2.3 PG/ML (2.0-4.4)
[2021-02-20] MEDS: duloxetine 60 mg Capsule PO (21:14)
[2021-02-20] MEDS: mirtazapine 30 mg Tablet PO (21:14)
[2021-02-20] MEDS: pregabalin 100 mg Capsule PO (21:14)
[2021-02-20] MEDS: metoprolol tartrate 25 mg Tablet PO (21:14)
[2021-02-20] MEDS: atorvastatin 40 mg Tablet 20 MG PO (21:14)
[2021-02-20] MEDS: pantoprazole 40 mg SDV IVP (21:41)
[2021-02-20] MEDS: morphine 4 mg/mL SDV 1 mL 2 MG IVP (21:46)
[2021-02-21] VITALS (23 sets, daily range): BP systolic 99–150; BP diastolic 59–86; PULSE 53–75; RESP 14–20; TEMP 36.3–37; O2SAT 94–98
[2021-02-21] MEDS: sodium chloride 0.9% (100 ml) 100 ML 240 ML (02:30)
[2021-02-21] MEDS: tizanidine 4 mg Tablet PO (03:38)
--- NOTE | 2021-02-21 03:47 | PC.NURSE ---
BLOOD CONFLICTS: WHEN THIS NURSE AND CATERING [facility] MANDI ELY, ATTEMPTED TO CONFIRM PATIENT AND BLOOD INFORMATION THERE WERE ISSUES WITH SCANNING THE PRODUCT CODE. AFTER MULTIPLE ATTEMPTS THE BLOOD WAS RETURNED TO BLOOD BANK AND RECONFIRMED BY BLOOD BANK. THEY STATED THEY WOULD HAVE TO RE CONFIGURE SOMETHING WITH THE BLOOD AND TO TRY AGAIN AFTER. WHEN THE SECOND ATTEMPT WAS PERFORMED THERE WERE ISSUES WITH THE TYPE AND CROSS BAND AND THE PRODUCT CODE. WHILE BOTH NURSES AGREED VERBALLY THAT ALL CODES MATCHED THE DECISION WAS MADE TO OVERRIDE THE SCAN DUE TO FAILURE FOR THE SECOND TIME. WHEN GOING TO HANG THE SECOND UNIT OF PRBC'S, THERE WAS AN ISSUE SCANNING THE TYPE AND CROSS BAND CODE AGAIN. AT THIS TIME THIS NURSE AND CHARGE NURSE MANDI RODRÍGUEZ, BOTH CONFIRMED INFORMATION TO BE CORRECT AND THE DECISION TO OVERRIDE THE SCAN AGAIN WAS MADE. THE PATIENT IS TOLERATING THE TRANSFUSION WELL WITH NO S/S OF REACTION.
[2021-02-21] MEDS: sodium chloride 0.9% (100 ml) 100 ML 125 ML (06:32)
[2021-02-21] MEDS: magnesium sulfate premix 2 GM/50 ML PIGGYBACK IV (08:02)
[2021-02-21] MEDS: cyanocobalamin 1,000 mcg Tablet 500 MCG PO (08:02)
[2021-02-21] MEDS: pantoprazole 40 mg SDV IVP (08:02)
[2021-02-21] MEDS: aspirin 81 mg EC Tablet PO (08:03)
[2021-02-21] MEDS: propranolol 20 mg Tablet 10 MG PO (08:03)
[2021-02-21] MEDS: predniSONE 5 mg Tablet 2.5 MG PO (08:03)
[2021-02-21] MEDS: potassium chloride ER 20 mEq Tablet PO (08:03)
[2021-02-21] MEDS: loratadine 10 mg Tablet PO (08:03)
[2021-02-21] MEDS: metoprolol tartrate 25 mg Tablet PO (08:04)
[2021-02-21] MEDS: pregabalin 100 mg Capsule PO ×2 (08:04→15:57)
[2021-02-21] MEDS: folic acid 1 mg Tablet 2 MG PO (08:04)
[2021-02-21] MEDS: morphine 4 mg/mL SDV 1 mL 2 MG IVP (09:07)
[2021-02-21 09:35] LABS: Basophils # 0.1 10^3/uL (0.0-0.1); Basophils % 1.5 %; Eosinophils # 0.2 10^3/uL (0.0-0.8); Hematocrit 44.2 % (37.0-47.0); Hemoglobin 14.1 g/dL (11.5-15.3); Lymphocytes # 1.4 10^3/uL (0.8-4.8); Lymphocytes % 23.6 %; Mean Corpuscular HGB Conc 31.9 g/dL (30.0-36.0); Mean Corpuscular Hemoglobin 26.7 pg (28.0-34.0); Mean Corpuscular Volume 83.6 fL (81-99); Monocytes # 0.6 10^3/uL (0.2-0.9); Neutrophils # 3.76 10^3/uL (1.8-7.7); Neutrophils % 61.6 %; Nucleated Red Blood Cells % 0 %; Platelet Count 192 10^3/cmm (130-400); Red Blood Count 5.29 10^6/uL (4.1-5.3); Red Cell Distribution Width 15.7 % (12.1-15.1); White Blood Count 6.1 10^3/uL (4.0-10.0)
[2021-02-21 09:55] LABS: Alanine Aminotransferase 53 U/L (0-33); Albumin Level 3.9 g/dL (3.5-5.2); Alkaline Phosphatase 349 IU/L (35-105); Anion Gap 15.8 (5-19); Aspartate Amino Transferase 174 U/L (0-32); Blood Urea Nitrogen 14 mg/dL (8-23); Calcium 8.7 mg/dL (8.5-10.5); Carbon Dioxide 23 mmol/L (22-29); Chloride 102 mmol/L (98-107); Chol HDL Ratio 3.86 mg/dL (0.0-4.40); Cholesterol 170 mg/dL (0-200); Globulin 3.5 g/dL (1.3-4.6); Glomerular Filtration Rate 63.2 mL/min (90-130); Glucose 163 mg/dL (65-115); HDL Cholesterol 44 mg/dL (60-100); LDL Cholesterol Calculated 95 mg/dL (50-129); Osmolality Calculated 288 mOsm/kg (285-295); Potassium 3.8 mmol/L (3.5-5.1); Sodium 137 mmol/L (136-145); Total Bilirubin 0.9 mg/dL (0.15-1.2); Total Protein 7.4 g/dL (6.6-8.7); Triglycerides 156 mg/dL (0-150); VLDL Cholestrol Calculation 31 mg/dL (0-30)
[2021-02-21 10:04] LABS: Ferritin 25 ng/mL (15-150)
[2021-02-21 10:07] LABS: Estmated Average Glucose 105; Hemoglobin A1C 5.3 % (4.0-6.0)
--- NOTE | 2021-02-21 10:07 | PC.CHAP ---
Pastoral Care Encounter/Spiritual Assessment Type of Contact [] Declined accreditation specialist visit [] Patient/Family/Request visit [] Outpatient visit [] Follow-up visit [] Physician referral [] Code/Alert [x] Routine visit [] Staff referral [] Actively dying [] Patient sleeping [] Family support [] [] Out of room [] Palliative care [] [] Receiving care in room [] Pre-surgical visit [] Trauma [] Long length of stay [] ICU visit [] Other: Relational/Emotional Strength []x Patient feels connected with others/family/visitors/staff [] Distress [] Loneliness/isolation [] Abandonment Spirituality of Patient [x] Person of [place] [x] Attends Bahai of their [place] [x] Believes in Prayer [] Reads Bible or Nondenominational materials [] There are Spiritual issues to be addressed Propulsion Generator Repairer Interventions [x] Prayer [x] Active listening [x] Non-anxious presence [x] Spiritual/emotional support [] Crisis/trauma care [] Spiritual counseling [] Bereavement support [] Provided bereavement packet [] Provided Bible/devotional materials [] Provided toy/stuffed animal, coloring book to patient or family member [] Provided Communion [] Anointing/[place] [] Salvation [x] Completed spiritual assessment [] Other: Impact on Illness or Injury [] Angry [] Fearful [] Anxious [] Often cries [] Exhaustion [] Unable to work [] Unable to attend mormon [] Unable to walk/stand [] Unable to read [] Unable to drive [] Unable to eat/drink [] Unable to sleep [] Unable to be with family [] Patient intubated [] Other: Summary patient feeling much better today Time spent with patient 15 min
[2021-02-21 10:08] LABS: Partial Thromboplastin Time 29.4 SECONDS (23.9-36.7)
--- NOTE | 2021-02-21 13:38 | PM.DCS ---
Discharge Providers Date of Admission: 02/20/21 14:05 Date of Discharge: February 21, 2021 Attending Provider at Admission: Tashi Kendall MD Attending Provider at Discharge: Tashi Kendall MD Primary Care Provider: Mora Adamson MD Diagnoses at Discharge Discharge Diagnosis (1) Anemia: Status: Acute (2) Diarrhea: Status: Acute (3) Essential hypertension: Status: Acute (4) CHF (congestive heart failure): Status: Acute Qualifiers: Heart failure chronicity: acute on chronic Heart failure type: unspecified Qualified Code(s): I50.9 - Heart failure, unspecified (5) CAD (coronary artery disease): Status: Acute Qualifiers: Associated angina: without angina Coronary Disease-Associated Artery/Lesion type: [place] artery [place] vs. transplanted heart: [place] heart Qualified Code(s): I25.10 - Atherosclerotic heart disease of [place] coronary artery without angina pectoris (6) COPD (chronic obstructive pulmonary disease): Status: Acute Reason for Visit Reason for Visit: WEAKNESS, LOW BP Hospital Course Hospital Course Natacha Garcia is a 65 year old female with past medical history of CAD ?non-ST elevation [place], COPD, rheumatoid arthritis, mitral regurgitation, ischemic cardiomyopathy, chronic steroid for rheumatoid arthritis presents to the ER today with complaining of dizziness ongoing for last 1 week. He states last night and today morning she had severe dizziness when she was getting up from bed with almost passing out today morning so she presented to the ER. Patient has been having watery diarrhea for last 1 week. She states that all the symptoms and, calm, not foul-smelling. She denies any chest pain though complains of palpitations on and off for last 2 to 3 days. She states she takes her medications regularly. Denies any abdominal pain, nausea, vomiting, headache, dysuria, chest pain, difficulty in breathing more than normal. Patient last had colonoscopy many years ago and was reported normal. Blood work in the ER showed a white count 7.5, hemoglobin of 7.6 with last hemoglobin of 11.3 in November, sodium of 143, chloride of 107, creatinine of 0.6, BUN of 14, baseline troponin of 6 with a delta of 0 in 2 hours, calcium of 8.5, bilirubin of 0.3, AST/ALT of 17/9, alkaline phosphatase of 133 CT abdomen pelvis results as below. Patient was admitted to the hospital for further evaluation of dizziness. She was transfused 2 units of PRBC for acute onset anemia. She responded well to the treatment and hemoglobin on the day of discharge was 14.3 and remained stable. Patient did not have any further episodes of diarrhea. Patient is also advised to follow-up with general surgery next 2 weeks for possible EGD and colonoscopy. During hospitalization telemetry showed occasional episodes of bradycardia for which her dose of metoprolol was adjusted. She is been discharged hemodynamically stable condition after normal orthostatic platelets to follow with the primary care provider in the next 1 week for repeat CBC and adjustment of antihypertensives after maintaining a blood pressure diary for next 1 week. She is advised to follow-up with general surgery next week for possible EGD and colonoscopy. Physical Exam Narrative: EXAM NARRATIVE: General: No acute distress, AO x3, HEENT: PERRLA, pupils bilaterally equal and reactive Chest: Normal vesicular breath sounds, no added sounds, equal good air entry bilaterally CVS: S1-S2 regular, no murmurs, no tachycardia, no gallops, no rubs Abdomen: Soft, nontender, no organomegaly, bowel sounds present Neuro: No focal deficits, no facial deformity, AO x3, power 5/5 in all limbs Discharge Data Data Completed and Pending: Completed Studies During Hospitalization Category Date Time Status CT abdomen pelvis w con* [id number] Stat Cat Scan 02/20/21 14:05 Completed XR chest 1V sybil ble [id number] Stat Exams 02/20/21 10:52 Completed Pending at discharge Category Date Time Status Clostridioides Di fficile PCR Routin e Lab 02/20/21 18:15 Ordered Enteric Bacterial Panel by PCR Rout ine Lab 02/20/21 18:15 Ordered Enteric Parasite Panel by PCR Routi ne Lab 02/20/21 18:15 Ordered Immunochemical Fe dawna OCB Routine Lab 02/20/21 18:15 Ordered Lactoferrin Routi ne Lab 02/20/21 18:23 Ordered MRSA by PCR Routi ne Lab 02/20/21 18:45 Received Labs from last 24 hours 02/21/21 02/21/21 02/21/21 09:10 09:10 09:10 WBC 6.1 RBC 5.29 Hgb 14.1 D Hct 44.2 D MCV 83.6 MCH 26.7 L MCHC 31.9 D RDW 15.7 H Plt Count 192 MPV 13.0 H Neut % (Auto) 61.6 Lymph % (Auto) 23.6 [place] % (Auto) 10.0 Eos % (Auto) 3.0 Baso % (Auto) 1.5 Neut # (Auto) 3.76 Lymph # (Auto) 1.4 [place] # (Auto) 0.6 Eos # (Auto) 0.2 Baso # (Auto) 0.1 Nucleated RBC % (a uto) 0 Nucleated RBCs # 0.0 PT INR APTT Sodium 137 Potassium 3.8 Chloride 102 Carbon Dioxide 23 Anion Gap 15.8 BUN 14 Creatinine 0.9 GFR Calculation 63.2 L Glucose 163 H Estimat Average Gl ucose Hemoglobin A1c Calculated Osmolal ity 288 Calcium 8.7 Phosphorus Magnesium Iron TIBC % Saturation Unsat Iron Binding Ferritin Cancelled 25 Total Bilirubin 0.9 AST 174 H ALT 53 H Alkaline Phosphata se 349 H Troponin T 120 Min [place] Delta Troponin T Troponin T Hi Sens 6Hr Troponin T Hi Sens 6Hr Delta NT-Pro-B Natriuret Pep Total Protein 7.4 Albumin 3.9 Globulin 3.5 Triglycerides Cancelled 156 H Cholesterol Cancelled 170 LDL Cholesterol, C alc Cancelled 95 Total VLDL Cholest [place] Cancelled 31 H HDL Cholesterol Cancelled 44 L Cholesterol/HDL Ra wdae Cancelled 3.86 Vitamin B12 Folate Procalcitonin TSH Free T4 Free T3 Urine Color Urine Appearance Urine pH Ur Specific Gravit y Urine Protein Urine Glucose (UA) Urine Ketones Urine Blood Urine Nitrate Urine Bilirubin Urine Urobilinogen Ur Leukocyte Jazzy ase Blood Type Rho(D) Type Antibody Screen Crossmatch 02/21/21 02/21/21 02/20/21 09:10 09:10 18:50 WBC RBC Hgb Hct MCV MCH MCHC RDW Plt Count MPV Neut % (Auto) Lymph % (Auto) [place] % (Auto) Eos % (Auto) Baso % (Auto) Neut # (Auto) Lymph # (Auto) [place] # (Auto) Eos # (Auto) Baso # (Auto) Nucleated RBC % (a uto) Nucleated RBCs # PT 13.20 INR 0.97 APTT 29.4 Sodium Potassium Chloride Carbon Dioxide Anion Gap BUN Creatinine GFR Calculation Glucose Estimat Average Gl ucose 105 Hemoglobin A1c 5.3 Calculated Osmolal ity Calcium Phosphorus Magnesium Iron TIBC % Saturation Unsat Iron Binding Ferritin Total Bilirubin AST ALT Alkaline Phosphata se Troponin T 120 Min [place] Delta Troponin T Troponin T Hi Sens 6Hr Troponin T Hi Sens 6Hr Delta NT-Pro-B Natriuret Pep Total Protein Albumin Globulin Triglycerides Cholesterol LDL Cholesterol, C alc Total VLDL Cholest [place] HDL Cholesterol Cholesterol/HDL Ra wade Vitamin B12 Folate Procalcitonin TSH Free T4 Free T3 Urine Color Urine Appearance Urine pH Ur Specific Gravit y Urine Protein Urine Glucose (UA) Urine Ketones Urine Blood Urine Nitrate Urine Bilirubin Urine Urobilinogen Ur Leukocyte Jazzy ase Blood Type Rho(D) Type Antibody Screen Crossmatch 02/20/21 02/20/21 02/20/21 17:04 13:30 13:09 WBC RBC Hgb Hct MCV MCH MCHC RDW Plt Count MPV Neut % (Auto) Lymph % (Auto) [place] % (Auto) Eos % (Auto) Baso % (Auto) Neut # (Auto) Lymph # (Auto) [place] # (Auto) Eos # (Auto) Baso # (Auto) Nucleated RBC % (a uto) Nucleated RBCs # PT INR APTT Sodium Potassium Chloride Carbon Dioxide Anion Gap BUN Creatinine GFR Calculation Glucose Estimat Average Gl ucose Hemoglobin A1c Calculated Osmolal ity Calcium Phosphorus Magnesium Iron TIBC % Saturation Unsat Iron Binding Ferritin Total Bilirubin AST ALT Alkaline Phosphata se Troponin T 120 Min [place] Delta Troponin T Troponin T Hi Sens 6Hr 7.02 Troponin T Hi Sens 6Hr Delta 1.02 NT-Pro-B Natriuret Pep Total Protein Albumin Globulin Triglycerides Cholesterol LDL Cholesterol, C alc Total VLDL Cholest [place] HDL Cholesterol Cholesterol/HDL [place] Vitamin B12 Folate Procalcitonin TSH Free T4 Free T3 Urine Color Yellow Urine Appearance Clear Urine pH 6.5 Ur Specific Gravit y 1.005 Urine Protein Neg Urine Glucose (UA) Norm Urine Ketones Negative Urine Blood Neg Urine Nitrate Negative Urine Bilirubin Neg Urine Urobilinogen Norm Ur Leukocyte Jazzy ase Negative Blood Type O Negative Rho(D) Type Negative / 0 Antibody Screen Negative Crossmatch See Detail 02/20/21 02/20/21 02/20/21 13:09 13:09 13:00 WBC RBC Hgb Hct MCV MCH MCHC RDW Plt Count MPV Neut % (Auto) Lymph % (Auto) [place] % (Auto) Eos % (Auto) Baso % (Auto) Neut # (Auto) Lymph # (Auto) [place] # (Auto) Eos # (Auto) Baso # (Auto) Nucleated RBC % (a uto) Nucleated RBCs # PT INR APTT Sodium 143 Potassium 3.9 Chloride 107 Carbon Dioxide 21 L Anion Gap 18.9 BUN 14 Creatinine 0.9 GFR Calculation 63.2 L Glucose 87 Estimat Average Gl ucose Hemoglobin A1c Calculated Osmolal ity 296 H Calcium 8.5 Phosphorus Magnesium Iron TIBC % Saturation Unsat Iron Binding Ferritin Total Bilirubin 0.3 AST 17 ALT 9 Alkaline Phosphata se 133 H Troponin T 120 Min [place] 6.00 Delta Troponin T 0 Troponin T Hi Sens 6Hr Troponin T Hi Sens 6Hr Delta NT-Pro-B Natriuret Pep Total Protein 6.8 Albumin 3.7 Globulin 3.1 Triglycerides Cholesterol LDL Cholesterol, C alc Total VLDL Cholest [place] HDL Cholesterol Cholesterol/HDL [place] Vitamin B12 Folate Procalcitonin TSH Free T4 Free T3 Urine Color Urine Appearance Urine pH Ur Specific Gravit y Urine Protein Urine Glucose (UA) Urine Ketones Urine Blood Urine Nitrate Urine Bilirubin Urine Urobilinogen Ur Leukocyte Jazzy ase Blood Type Cancelled Rho(D) Type Cancelled Antibody Screen Cancelled Crossmatch See Detail 02/20/21 02/20/21 02/20/21 11:10 11:10 11:10 WBC RBC Hgb Hct MCV MCH MCHC RDW Plt Count MPV Neut % (Auto) Lymph % (Auto) [place] % (Auto) Eos % (Auto) Baso % (Auto) Neut # (Auto) Lymph # (Auto) [place] # (Auto) Eos # (Auto) Baso # (Auto) Nucleated RBC % (a uto) Nucleated RBCs # PT INR APTT Sodium Potassium Chloride Carbon Dioxide Anion Gap BUN Creatinine GFR Calculation Glucose Estimat Average Gl ucose Hemoglobin A1c Calculated Osmolal ity Calcium Phosphorus 2.1 L Magnesium 1.1 L Iron 14 L TIBC 254 % Saturation 5.5 L Unsat Iron Binding 240 Ferritin Total Bilirubin AST ALT Alkaline Phosphata se Troponin T 120 Min [place] Delta Troponin T Troponin T Hi Sens 6Hr Troponin T Hi Sens 6Hr Delta NT-Pro-B Natriuret Pep 613 H Total Protein Albumin Globulin Triglycerides Cholesterol LDL Cholesterol, C alc Total VLDL Cholest [place] HDL Cholesterol Cholesterol/HDL [place] Vitamin B12 173 L Folate > 20.0 Procalcitonin 0.02 TSH 0.24 L Free T4 1.10 Free T3 2.3 Urine Color Urine Appearance Urine pH Ur Specific Gravit y Urine Protein Urine Glucose (UA) Urine Ketones Urine Blood Urine Nitrate Urine Bilirubin Urine Urobilinogen Ur Leukocyte Jazzy ase Blood Type Rho(D) Type Antibody Screen Crossmatch Addt'l Data from Hospital Stay: Laboratory Results WBC 6.1 10^3/uL (4.0- 10.0) 02/21/21 09:10 RBC 5.29 10^6/uL (4.1 -5.3) 02/21/21 09:10 Hgb 14.1 g/dL (11.5-1 5.3) D 02/21/21 09:10 Hct 44.2 % (37.0-47.0 ) D 02/21/21 09:10 MCV 83.6 fL (81-99) 02/21/21 09:10 MCH 26.7 pg (28.0-34. 0) L 02/21/21 09:10 MCHC 31.9 g/dL (30.0-3 6.0) D 02/21/21 09:10 RDW 15.7 % (12.1-15.1 ) H 02/21/21 09:10 Plt Count 192 10^3/cmm (130 -400) 02/21/21 09:10 MPV 13.0 fL (7.4-10.4 ) H 02/21/21 09:10 Neut % (Auto) 61.6 % 02/21/21 09:10 Lymph % (Auto) 23.6 % 02/21/21 09:10 [place] % (Auto) 10.0 % 02/21/21 09:10 Eos % (Auto) 3.0 % 02/21/21 09:10 Baso % (Auto) 1.5 % 02/21/21 09:10 Neut # (Auto) 3.76 10^3/uL (1.8 -7.7) 02/21/21 09:10 Lymph # (Auto) 1.4 10^3/uL (0.8- 4.8) 02/21/21 09:10 [place] # (Auto) 0.6 10^3/uL (0.2- 0.9) 02/21/21 09:10 Eos # (Auto) 0.2 10^3/uL (0.0- 0.8) 02/21/21 09:10 Baso # (Auto) 0.1 10^3/uL (0.0- 0.1) 02/21/21 09:10 Nucleated RBC % (a uto) 0 % 02/21/21 09:10 Nucleated RBCs # 0.0 /100WBC 02/21/21 09:10 PT 13.20 SECONDS (12 .1-14.9) 02/20/21 18:50 INR 0.97 (0.8-1.2) 02/20/21 18:50 APTT 29.4 SECONDS (23. 9-36.7) 02/21/21 09:10 Sodium 137 mmol/L (136-1 45) 02/21/21 09:10 Potassium 3.8 mmol/L (3.5-5 .1) 02/21/21 09:10 Chloride 102 mmol/L (98-10 7) 02/21/21 09:10 Carbon Dioxide 23 mmol/L (22-29) 02/21/21 09:10 Anion Gap 15.8 (5-19) 02/21/21 09:10 BUN 14 mg/dL (8-23) 02/21/21 09:10 Creatinine 0.9 mg/dL (0.5-0. 9) 02/21/21 09:10 GFR Calculation 63.2 mL/min (90-1 30) L 02/21/21 09:10 Glucose 163 mg/dL (65-115 ) H 02/21/21 09:10 Estimat Average Gl ucose 105 02/21/21 09:10 Hemoglobin A1c 5.3 % (4.0-6.0) 02/21/21 09:10 Calculated Osmolal ity 288 mOsm/kg (285- 295) 02/21/21 09:10 Calcium 8.7 mg/dL (8.5-10 .5) 02/21/21 09:10 Phosphorus 2.1 mg/dL (2.5-4. 5) L 02/20/21 11:10 Magnesium 1.1 mg/dL (1.7-2. 3) L 02/20/21 11:10 Iron 14 ug/dL (37-145) L 02/20/21 11:10 TIBC 254 mcg/dl 02/20/21 11:10 % Saturation 5.5 % (20-50) L 02/20/21 11:10 Unsat Iron Binding 240 ug/dL (112-34 7) 02/20/21 11:10 Ferritin 25 ng/mL (15-150) 02/21/21 09:10 Ferritin Cancelled 02/21/21 09:10 Total Bilirubin 0.9 mg/dL (0.15-1 .2) 02/21/21 09:10 AST 174 U/L (0-32) H 02/21/21 09:10 ALT 53 U/L (0-33) H 02/21/21 09:10 Alkaline Phosphata se 349 IU/L (35-105) H 02/21/21 09:10 Troponin T Baselin e 6 ng/L (0-10) 02/20/21 11:10 Troponin T 120 Min [place] 6.00 ng/L (0-10) 02/20/21 13:09 Delta Troponin T 0 ABS# (0-10) 02/20/21 13:09 Troponin T Hi Sens 6Hr 7.02 ng/L (0-10) 02/20/21 17:04 Troponin T Hi Sens 6Hr Delta 1.02 ng/L (0-12) 02/20/21 17:04 NT-Pro-B Natriuret Pep 613 pg/mL (0-125) H 02/20/21 11:10 Total Protein 7.4 g/dL (6.6-8.7 ) 02/21/21 09:10 Albumin 3.9 g/dL (3.5-5.2 ) 02/21/21 09:10 Globulin 3.5 g/dL (1.3-4.6 ) 02/21/21 09:10 Triglycerides 156 mg/dL (0-150) H 02/21/21 09:10 Triglycerides Cancelled 02/21/21 09:10 Cholesterol 170 mg/dL (0-200) 02/21/21 09:10 Cholesterol Cancelled 02/21/21 09:10 LDL Cholesterol, C alc 95 mg/dL (50-129) 02/21/21 09:10 LDL Cholesterol, C alc Cancelled 02/21/21 09:10 Total VLDL Cholest [place] 31 mg/dL (0-30) H 02/21/21 09:10 Total VLDL Cholest [place] Cancelled 02/21/21 09:10 HDL Cholesterol 44 mg/dL (60-100) L 02/21/21 09:10 HDL Cholesterol Cancelled 02/21/21 09:10 Cholesterol/HDL [place] 3.86 mg/dL (0.0-4 .40) 02/21/21 09:10 Cholesterol/HDL Ra wade Cancelled 02/21/21 09:10 Vitamin B12 173 pg/mL (232-12 45) L 02/20/21 11:10 Folate > 20.0 ng/mL (4.8 -37.3) 02/20/21 11:10 Procalcitonin 0.02 ng/mL (0-0.5 ) 02/20/21 11:10 TSH 0.24 uIU/mL (0.27 -4.20) L 02/20/21 11:10 Free T4 1.10 ng/dL (0.82- 1.77) 02/20/21 11:10 Free T3 2.3 PG/ML (2.0-4. 4) 02/20/21 11:10 Urine Color Yellow (Yellow) 02/20/21 13:30 Urine Appearance Clear (CLEAR) 02/20/21 13:30 Urine pH 6.5 (5-7) 02/20/21 13:30 Ur Specific Gravit y 1.005 (1.005-1.0 30) 02/20/21 13:30 Urine Protein Neg (Negative) 02/20/21 13:30 Urine Glucose (UA) Norm (Normal) 02/20/21 13:30 Urine Ketones Negative (Negati ve) 02/20/21 13:30 Urine Blood Neg (Negative) 02/20/21 13:30 Urine Nitrate Negative (Negati ve) 02/20/21 13:30 Urine Bilirubin Neg (Negative) 02/20/21 13:30 Urine Urobilinogen Norm mg/dL (Negat tre) 02/20/21 13:30 Ur Leukocyte Ajzzy ase Negative (Negati ve) 02/20/21 13:30 Blood Type Cancelled 02/20/21 13:09 Blood Type O Negative 02/20/21 13:09 Rho(D) Type Cancelled 02/20/21 13:09 Rho(D) Type Negative / 0 02/20/21 13:09 Antibody Screen Cancelled 02/20/21 13:09 Antibody Screen Negative 02/20/21 13:09 Crossmatch See Detail 02/20/21 13:09 Crossmatch See Detail 02/20/21 13:09 Impressions Chest X-Ray 02/20/21 10:52 IMPRESSION: No sign of pneumonia. Abdomen/Pelvis CT 02/20/21 14:05 IMPRESSION: 1. Moderate diffuse constipation. 2. Distal small bowel anastomotic sutures. No obstruction. There is a small amount of increased fluid at the surgical anastomosis site which may be due to mild gastroenteritis. 3. Prior appendectomy, cholecystectomy and hysterectomy. 4. 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 5. Mild diffuse cortical thinning of each kidney. Vitals: Last Vital Signs Temp 97.7 F 02/21/21 11:58 Pulse 55 L 02/21/21 11:58 Resp 17 02/21/21 11:58 BP 126/74 02/21/21 11:58 Pulse Ox 94 02/21/21 11:58 Discharge Plan Discharge Patient Disposition: Home Condition: Stable Prescriptions: New Vitamin B-12 1,000 mcg Tablet 500 mcg PO DAILY Qty: 30 RF: 0 Protonix [address] for susp in packet 40 mg PO BID Qty: 30 RF: 0 Continued nitroglycerin [Nitrostat] 0.4 mg tablet, sublingual 0.4 mg SUBLINGUAL Q5M PRN (Reason: chest pain) Qty: 25 RF: 4 pregabalin [Lyrica] 100 mg capsule 100 mg PO TID RF: 0 mirtazapine 30 mg tablet 30 mg PO BEDTIME RF: 0 albuterol sulfate [ProAir HFA] 90 mcg/actuation HFA aerosol inhaler 2 puff INHALATION Q6H PRN (Reason: Shortness Of Breath) RF: 0 tizanidine 4 mg capsule 4 mg PO QID PRN (Reason: unknown) RF: 0 levothyroxine 25 mcg capsule 25 mcg PO DAILY RF: 0 Movantik 25 mg tablet 25 mg PO QAM PRN (Reason: Constipation) RF: 0 aspirin [Adult Aspirin Regimen] 81 mg tablet,delayed release (DR/EC) 81 mg PO DAILY RF: 0 Hold Instructions: Resume on 03/15/20. Resume this dose of aspirin after your 30 days of full strength aspirin for DVT prophylaxis folic acid 1 mg tablet 2 mg PO DAILY Qty: 60 RF: 5 prednisone 2.5 mg tablet 2.5 mg PO BID Qty: 60 RF: 3 Xeljanz XR 11 mg tablet extended release 24 hr 11 mg PO DAILY Qty: 30 RF: 4 lisinopril 5 mg tablet 5 mg PO DAILY Qty: 60 RF: 3 omeprazole 20 mg capsule,delayed release(DR/EC) 20 mg PO BID Qty: 60 RF: 3 potassium chloride 10 mEq tablet extended release 20 meq PO DAILY Qty: 180 RF: 3 simvastatin 20 mg tablet 20 mg PO BEDTIME Qty: 90 RF: 0 albuterol sulfate 2.5 mg /3 mL (0.083 %) solution for nebulization 2.5 mg inhalation Q6H PRN (Reason: Shortness Of Breath) RF: 0 duloxetine 60 mg capsule,delayed release(DR/EC) 60 mg PO BEDTIME RF: 0 loratadine 10 mg Tablet 10 mg PO DAILY RF: 0 Changed metoprolol tartrate 25 mg tablet 12.5 mg PO BID Qty: 180 RF: 3 furosemide 40 mg tablet 40 mg PO DAILY Qty: 0 RF: 0 Discontinued propranolol 10 mg tablet 10 mg PO TID PRN (Reason: withdrawal symptoms) RF: 0 Referrals: Mora Adamson MD [Primary Care Provider] - 7-10 days (Repeat CBC) Erick Villeda MD [Physician] - 2 weeks (EGD and colonoscopy) Discharge Diet: Cardiac Discharge Activity: Resume usual activity Patient Instructions: Opioid Safety Activity Restrictions/Additional Instructions: Please follow-up with your primary care provider within next 1 week for repeat CBC. Please continue to check your blood pressure at least twice a day and maintain a blood pressure diary to follow-up with your primary care provider. Propranolol has been discontinued. Metoprolol has been decreased to 12.5 twice daily. Continue furosemide 40mg daily unless weight increases more than 3 pounds in a day, 5 pounds in a week. Discharge Attestations Time Spent in Discharge Care*: greater than 30 min Specific Discharge Activities: educating patient, discussing with pcp/other providers, discussing with case folder/social workers/dc planners, documenting/other paperwork and evaluating patient/reviewing data Status at Discharge: Cognitive status at discharge: cognitively intact, Behavioral status at discharge: cooperative, Functional status at discharge: independent ambulation Overall status at discharge: patient is back to baseline Quality Metrics Clinical Quality Measures During this hospital stay, did patient experience: None Coding Level of Care Code Acute Chg FW DC note Diagnoses Anemia D64.9 Diarrhea R19.7 Essential hypertension I10 CHF (congestive heart failure) I50.9 Heart failure chronicity: acute on chronic Heart failure type: unspecified CAD (coronary artery disease) I25.10 Associated angina: without angina Coronary Disease-Associated Artery/Lesion type: [place] artery [place] vs. transplanted heart: [place] heart COPD (chronic obstructive pulmonary disease) J44.9
[2021-02-21 13:57] LABS: Hematocrit 43.2 % (37.0-47.0); Hemoglobin 13.7 g/dL (11.5-15.3)
== END 2021-02-21 19:51 | disposition home or self-care (01) | DRG 812 ==
LOC: ER 14:49 → MEDSURG 18:11
PROVIDERS: Admitting Provider Student in an Organized Health Care Education/Training Program; Emergency Provider Family Medicine; PCP Family Medicine; Visit Provider Student in an Organized Health Care Education/Training Program
DX: D64.9 Anemia, unspecified (principal); R19.7 Diarrhea, unspecified; I11.0 Hypertensive heart disease with heart failure; I50.9 Heart failure, unspecified; I25.10 Atherosclerotic heart disease of native coronary artery without angina pectoris; J44.9 Chronic obstructive pulmonary disease, unspecified; I25.2 Old myocardial infarction; M05.89 Other rheumatoid arthritis with rheumatoid factor of multiple sites; I34.0 Nonrheumatic mitral (valve) insufficiency; I25.5 Ischemic cardiomyopathy; E78.5 Hyperlipidemia, unspecified; F17.210 Nicotine dependence, cigarettes, uncomplicated; R00.1 Bradycardia, unspecified; M79.7 Fibromyalgia; Z79.52 Long term (current) use of systemic steroids; Z96.651 Presence of right artificial knee joint; Z90.710 Acquired absence of both cervix and uterus; Z90.49 Acquired absence of other specified parts of digestive tract
CPT/HCPCS: 36415; 36430; 71045; 74177; 80053; 80061; 81003; 82607; 82728; 82746; 83036; 83540; 83550; 83735; 83880; 84100; 84145; 84439; 84443; 84481; 84484; 85014; 85018; 85025; 85610; 85730; 86850; 86900; 86920; 87641; 93005; 94664; 99285; C9113; G0378; J2270; J3475; J7512; P9016; P9058; Q9967

== ENCOUNTER 2021-02-22 08:04 | Outpatient (CLI) | payer MEDICARE, MEDICAID, SELFPAY ==
--- NOTE | 2021-02-22 08:00 | MR_ITS ---
WS: [id number] MRI LUMBAR SPINE NONCONTRAST TECHNIQUE: Sagittal T1, T2 and STIR imaging. Axial T1 and T2 imaging. CLINICAL INFORMATION: LUMBAR RADICULOPATHY COMPARISON: None. FINDINGS: Mild lumbar curve. No acute compression. No high-grade central canal stenosis. Mild disc bulging T11- T12. L1-L2: Normal. L2-L3: Normal. L3-L4: No significant disc bulging. Spinal canal and foramen are patent. Mild facet arthropathy. L4-L5: Minimal annular bulging. Mild facet arthropathy. Spinal canal and foramen are patent. L5-S1: Minimal annular bulging. Spinal canal and foramen are patent. Mild facet arthropathy. Visualized pelvic bony structures: Normal. Paravertebral soft tissues: Normal. Mild disc bulging at C5-C6 cervical spine. Tiny disc protrusions in the mid and lower thoracic spine seen on the [employer] imaging. Normal visualized thoracic aorta. MR/MR lumbar spine wo con* [id number] IMPRESSION: 1. Mild lumbar curve. No acute compression. No high-grade central canal stenos is. 2. Minimal annular bulging L5-S1. 3. No significant central canal or foraminal stenosis. 4. Mild facet arthropathy L4-L5 and L5-S1. 5. Mild disc osteophyte complex in the cervical spine at C5-C6. Small disc pro trusions in the mid thoracic spine seen on the [employer] imaging.
== END 2021-02-22 08:05 | disposition home or self-care (01) ==
LOC: RADSHAW 08:07
PROVIDERS: PCP Family Medicine; Visit Provider Anesthesiology Pain Medicine
DX: M54.16 Radiculopathy, lumbar region (principal); M51.27 Other intervertebral disc displacement, lumbosacral region; M47.816 Spondylosis without myelopathy or radiculopathy, lumbar region; M47.817 Spondylosis without myelopathy or radiculopathy, lumbosacral region; M25.78 Osteophyte, vertebrae; M51.24 Other intervertebral disc displacement, thoracic region
CPT/HCPCS: 72148

== ENCOUNTER 2021-03-23 07:21 | Outpatient (CLI) | payer MEDICARE, MEDICAID, SELFPAY ==
--- NOTE | 2021-03-23 07:27 | US_ITS ---
WS: [id number] THYROID ULTRASOUND (TI-RADS CRITERIA) History: Thyroid nodule. COMPARISON: 12/04/2017. Technique: Ultrasound examination of the thyroid and adjacent soft tissues is performed. FINDINGS: Right lobe: 3.8 cm x 1.2 cm x 1.3 cm. Volume: 3.2 cm3. Hypoechoic subcentimeter nodule in the maximum diameter of 3 mm in the mid gland. No dominant mass. Lymph nodes: None. Left lobe: 4.0 cm x 2.2 cm x 1.4 cm. Volume: 6.1 cm3. Enlarged LEFT thyroid. Large dominant mass in the mid thyroid. Lymph nodes: None. NODULE: 1 Size: 2.1 x 1.4 x 2.3 cm. Location: Mid Composition: Mixed cystic and solid (1) Echogenicity: Hypoechoic (2) Shape: Not taller than wide (0) Margins: Smooth (0) Echogenic foci: Punctate echogenic foci (3) ACR TI-RADS total points: 6 ACR TI-RADS risk category: TR4 Isthmus: 0.6 cm. US/US thyroid [id number] Impression: TR4 Recommendation:Fine-needle aspiration with ultrasound guidance. LEFT mid thyroi d nodule. It does appears this LEFT thyroid nodule has been previously biopsied. There ar e multiple suspicious features on today's ultrasound examination although proba jia not significantly changed since the study from 2018.
== END 2021-03-23 07:22 | disposition home or self-care (01) ==
LOC: RAD 07:23
PROVIDERS: PCP Family Medicine; Visit Provider Registered Nurse
DX: E04.2 Nontoxic multinodular goiter (principal)
CPT/HCPCS: 76536

== ENCOUNTER → 2021-04-20 12:26 | Outpatient (BNVA) | payer MEDICARE, MEDICAID, SELFPAY | PROVIDERS: PCP Family Medicine; Visit Provider Podiatrist Foot & Ankle Surgery | DX: M25.572 Pain in left ankle and joints of left foot (principal) | CPT/HCPCS: 73610 ==

== ENCOUNTER → 2021-04-25 13:46 | Outpatient (BNVA) | payer MEDICARE, MEDICAID, SELFPAY | PROVIDERS: PCP Family Medicine; Visit Provider Specialist | DX: M17.12 Unilateral primary osteoarthritis, left knee (principal) | CPT/HCPCS: 73560; 73565 ==

== ENCOUNTER → 2021-05-24 08:50 | Outpatient (BNVA) | payer MEDICARE, MEDICAID, SELFPAY | PROVIDERS: PCP Family Medicine; Visit Provider Internal Medicine Rheumatology | DX: D89.9 Disorder involving the immune mechanism, unspecified (principal); M05.79 Rheumatoid arthritis with rheumatoid factor of multiple sites without organ or systems involvement; Z71.89 Other specified counseling; Z79.899 Other long term (current) drug therapy | CPT/HCPCS: 36415; 80076; 82565; 85025; 86140 ==

== ENCOUNTER 2021-05-31 09:06 | Day surgery (SDC) | payer MEDICARE, MEDICAID, SELFPAY ==
[2021-05-29 14:34] VITALS: BMI 28.1
--- NOTE | 2021-05-31 09:46 | ANES.PREANE2 ---
Pre-Anesthetic Assessment Pre-Anesthetic Assessment: Height/Weight: Height 1.57 m Weight 69.853 kg Preop Diagnosis: anemia Proposed Procedure: Operation Date: 05/31/21 11:15 Proposed Procedures p EGD [id number] d50.9(Not Applicable) - Erick Villeda MD s Colonoscopy(Not Applicable) - Erick Villeda MD Familial anesthetic complications: none Was Beta Sobeida taken within 24 hours: N/A (patient has taken metoprolol in months, only takes it if BP is high or she Bottoms out ) Was Clonidine taken within 24 hours: N/A Last intake: > 8hrs Social: Social History: Tobacco and No alcohol Exam: Pre-Anes Outpt Exam: alert, oriented x 3, clear to auscultation bilaterally and regular rate & rhythm Airway: Cervical ROM: WNL MP: 3 Dentition: False Pulmonary: Pulmonary: COPD CV/HEM: CV/HEM: Anemia, HTN and IA (> 1 year - no stents) Comments: 2019 echo CONCLUSIONS Normal left ventricular size, systolic function and wall thickness, with no regional wall motion abnormalities. Grade I/IV diastolic dysfunction (abnormal relaxation filling pattern), normal to mildly elevated filling pressures. Left ventricular ejection fraction is estimated at 55 %. Moderately increased left atrial size. Structurally normal mitral valve. Moderate mitral valve regurgitation. When compared to the previous echocardiogram dated 05/13/17 I do not see the previously described left atrial mass. There is some minimal hyper echogenicity in some views but nothing which suggests a mass. Additionally, there is no evidence of a pericardial effusion on this study. The mitral regurgitation may be slightly worse. Otherwise, there is no change. 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) Anesthetic Plan: ASA status: 3 Anesthesia: MAC Risk of > 500 ml blood loss (7ml/kg in children): No PFSH Anesthesia PFSH: Medical History CAD (coronary artery disease) CHF (congestive heart failure) COPD (chronic obstructive pulmonary disease) Degenerative cervical spinal stenosis Degenerative disc disease, lumbar Dyslipidemia Essential hypertension Fatigue Fibromyalgia Iron deficiency anemia [place], acute, non ST segment elevation Mitral regurgitation Osteoarthritis of left knee Pagophagia Seropositive rheumatoid arthritis of multiple joints Small fiber neuropathy Subacromial bursitis of both shoulders Surgical History H/O adenoidectomy H/O bilateral cataract extraction H/O hemorrhoidectomy H/O: hysterectomy History of appendectomy History of colonoscopy History of intestinal surgery History of total right knee replacement Hx of section two times Hx of cholecystectomy Family History Other CAD (coronary artery disease) Cancer Chronic kidney disease (CKD) Hypertension Stroke Denies family history of Rheumatoid arthritis Diabetes Systemic lupus erythematosus (SLE) in adult Lung disease Social History Alcohol intake: never Marital status: Single Current occupational status: disabled History of recent travel: No (10/05/19) Data Anesthesia Cardiac Studies: No Data to Display
[2021-05-31 10:56] VITALS: BP 122/62; PULSE 66; RESP 18; TEMP 36.3; O2SAT 99
[2021-05-31] MEDS: sodium chloride 0.9% 1,000 ML 30 ML IV (10:59)
[2021-05-31] MEDS: lidocaine 1% INJ 20 mL INTRADERMA (11:08)
--- NOTE | 2021-05-31 11:44 | P.HP_ITS ---
Same Day Surgery H&P Indication for Procedure/HPI DATE OF PROCEDURE: May 31, 2021 CHIEF COMPLAINT/INDICATIONFOR SURGICAL PROCEDURE: anemia PREOP DIAGNOSIS: panendoscopy PLANNED PROCEDRUE: Operation Date: 05/31/21 11:15 Proposed Procedures p EGD [id number] d50.9(Not Applicable) - Erick Villeda MD s Colonoscopy(Not Applicable) - Erick Villeda MD Medications/Allergies* Home Medications Medication Instructions Recorded Confirmed Type albuterol sulfate 90 mcg/actuation 2 puff INHALATION Q6H PRN 10/04/19 05/31/21 History aerosol inhaler mirtazapine 30 mg tablet 30 mg PO BEDTIME tab 10/04/19 05/31/21 History pregabalin 100 mg capsule 100 mg PO TID 10/04/19 05/31/21 History levothyroxine 25 mcg capsule 25 mcg PO DAILY cap 10/05/19 05/31/21 History naloxegol 25 mg tablet 25 mg PO QAM PRN 02/02/20 05/31/21 History albuterol sulfate 2.5 mg INHALATION Q6H PRN 04/05/20 05/31/21 History duloxetine 60 mg PO BEDTIME 04/05/20 05/31/21 History Allergies/Adverse Reactions Allergy/AdvReac Type Severity Reaction Status Date / Time carbidopa [From Sinemet] Allergy Unknown Verified 05/31/21 10:54 etanercept [From Enbrel] Allergy Unknown Verified 05/31/21 10:54 latex Allergy Unknown Verified 05/31/21 10:54 levodopa [From Sinemet] Allergy Unknown Verified 05/31/21 10:54 propoxyphene [From Darvon] Allergy Unknown Verified 05/31/21 10:54 shrimp Allergy unknown Verified 05/31/21 10:54 Current Medications: Generic Name Dose Route Start Last Admin Trade Name Freq PRN Reason Stop Dose Admin Sodium Chloride 1,000 mls @ 30 mls/hr 05/31/21 10:30 05/31/21 10:59 Sodium Chloride 0.9% IV 06/01/21 10:29 30 mls/hr .Q24H EDILIA Administration Lidocaine HCl 0.1 ml 05/31/21 10:22 05/31/21 11:08 Lidocaine 1% Inj 20 Ml INTRADERMA 06/01/21 10:21 0.1 ml PRN PRN Administration anesthetic prior to IV start Pertinent History/Comorbid Conditions* Medical History (Updated 05/07/21 @ 21:51 by Demario Oakes DPM) CAD (coronary artery disease) CHF (congestive heart failure) COPD (chronic obstructive pulmonary disease) Degenerative cervical spinal stenosis Degenerative disc disease, lumbar Dyslipidemia Essential hypertension Fatigue Fibromyalgia Iron deficiency anemia [place], acute, non ST segment elevation Mitral regurgitation Osteoarthritis of left knee Pagophagia Seropositive rheumatoid arthritis of multiple joints Small fiber neuropathy Subacromial bursitis of both shoulders Surgical History (Updated 03/20/21 @ 10:41 by Erick Villeda MD) H/O adenoidectomy H/O bilateral cataract extraction H/O hemorrhoidectomy H/O: hysterectomy History of appendectomy History of colonoscopy History of intestinal surgery History of total right knee replacement Hx of section two times Hx of cholecystectomy Family History (Updated 02/02/20 @ 14:33 by Antoinette Granados LPN) CAD (coronary artery disease) Chronic kidney disease (CKD) Cancer Hypertension Stroke Denies family history of Rheumatoid arthritis Diabetes Systemic lupus erythematosus (SLE) in adult Lung disease Social History Alcohol intake: never Marital status: Single Current occupational status: disabled History of recent travel: No (10/05/19) Pertinent Exam Findings alert, oriented x 3 and regular rate & rhythm Recommendations Surgery/Procedure today Coding Level of Care Code 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
[2021-05-31 12:18] VITALS: BP 135/96; PULSE 71; RESP 16; TEMP 36.6; O2SAT 99
[2021-05-31 12:28] VITALS: BP 137/82; PULSE 72; RESP 18; O2SAT 97
--- NOTE | 2021-05-31 15:14 | ANE.PACU2 ---
Inpatient post-anesthesia follow up: Airway intact: Yes Vital signs: Temperature 97.9 F Pulse Rate 72 Respiratory Rate 18 Blood Pressure 137/82 Pulse Oximetry 97 Oxygen Delivery Me thod Room Air Oxygen Flow Rate 2 Fraction of Inspir ed Oxygen Hydration adequate: Yes Nausea and vomiting: No Pain level: 1 Mental status: Baseline
== END 2021-05-31 12:51 | disposition home or self-care (01) ==
PROVIDERS: PCP Family Medicine; Visit Provider Surgery
PROC: 0DJ08ZZ Inspection of Upper Intestinal Tract, Via Natural or Artificial Opening Endoscopic (ICD-10-PCS; CPT 43235; principal; 2021-05-31 11:15)
PROC: 0DJD8ZZ Inspection of Lower Intestinal Tract, Via Natural or Artificial Opening Endoscopic (ICD-10-PCS; CPT 45378; 2021-05-31 11:15)
DX: D64.9 Anemia, unspecified (principal); K29.70 Gastritis, unspecified, without bleeding; K29.80 Duodenitis without bleeding; K57.90 Diverticulosis of intestine, part unspecified, without perforation or abscess without bleeding; K64.8 Other hemorrhoids; I25.10 Atherosclerotic heart disease of native coronary artery without angina pectoris; J44.9 Chronic obstructive pulmonary disease, unspecified; M50.30 Other cervical disc degeneration, unspecified cervical region; M51.36 Other intervertebral disc degeneration, lumbar region; E78.5 Hyperlipidemia, unspecified; I10 Essential (primary) hypertension; I25.2 Old myocardial infarction; Z82.49 Family history of ischemic heart disease and other diseases of the circulatory system; M79.7 Fibromyalgia
CPT/HCPCS: 43235; 45378; 96360; 96361; J7030

== ENCOUNTER → 2021-06-05 09:34 | Outpatient (BNVA) | payer MEDICARE, MEDICAID, SELFPAY | PROVIDERS: PCP Family Medicine; Visit Provider Internal Medicine Rheumatology | DX: M05.79 Rheumatoid arthritis with rheumatoid factor of multiple sites without organ or systems involvement (principal); M48.02 Spinal stenosis, cervical region; M79.7 Fibromyalgia; Z79.899 Other long term (current) drug therapy; M17.0 Bilateral primary osteoarthritis of knee; G62.9 Polyneuropathy, unspecified; Z71.89 Other specified counseling; Z96.651 Presence of right artificial knee joint | CPT/HCPCS: 99214 ==